=== PATIENT | male | born 1945 | race Caucasian/White ===

== ENCOUNTER → 2016-12-21 | Outpatient (CLI) | payer MEDICARE ==
[2016-12-21 09:14] LABS: CH 31.6; CHCM 33.5; HCT 39.1 % (39.0-53.0); HDW 2.39; HGB 13.2 gm/dL (13.0-17.5); MCH 31.8 pg (25.0-35.0); MCHC 33.6 g/dL (31.0-37.0); MCV 94.6 fL (80.0-100.0); Mean Platelet Volume 7.2; RBC 4.14 m/uL (4.30-5.90); RDW 13.6 % (11.5-15.5); WBC 6.6 k/uL (3.8-10.6)
[2016-12-21 11:37] LABS: ALT 32 U/L (21-72); AST 23 U/L (17-59); Alkaline Phosphatase 75 U/L (38-126); Anion Gap 8 mmol/L; Blood Urea Nitrogen 17 mg/dL (9-20); Calcium 9.6 mg/dL (8.4-10.2); Carbon Dioxide 30 mmol/L (22-30); Chloride 102 mmol/L (98-107); Cholesterol 109 mg/dL (<200); Glucose 113 mg/dL (74-99); HDL Cholesterol 45 mg/dL (40-60); Non-African American GFR(MDRD) >60 (>60 ml/min/1.73 sqM); Potassium 4.8 mmol/L (3.5-5.1); Sodium 140 mmol/L (137-145); Triglycerides 90 mg/dL (<150)
[2016-12-21 12:12] LABS: Prostate Specific Antigen 1.09 ng/mL (0.00-4.00)
[2016-12-21 13:54] LABS: Hemoglobin A1C 6.6 % (4.2-6.1)
[2016-12-21 16:39] LABS: Urine Creatinine 118.3 mg/dL
== END | disposition home or self-care (01) ==
LOC: LABWHC1 08:21
PROVIDERS: ATTEND Internal Medicine
DX: R35.0 Frequency of micturition (principal); I25.10 Atherosclerotic heart disease of native coronary artery without angina pectoris; E78.4 Other hyperlipidemia; E11.69 Type 2 diabetes mellitus with other specified complication; M19.90 Unspecified osteoarthritis, unspecified site
CPT/HCPCS: 36415; 80053; 80061; 82043; 82570; 83036; 84153; 85027

== ENCOUNTER → 2017-01-17 | Outpatient (CLI) | payer MEDICARE ==
--- NOTE | 2017-01-17 15:35 | XR ---
EXAMINATION TYPE: XR lumbosacral spine min 4V , 5 VIEWS DATE OF EXAM ORDERED: 01/17/2017 HISTORY: R52 pain. COMPARISON: None. FINDINGS: Height and alignment are maintained. There is no spondylolysis or spondylolisthesis. There is mild di sc space loss at L1-2. There is mild spondylosis deformans at L3-4 and L4-5. There is mild facet arth ropathy in the lower lumbar facets. There is calcification of the [place] aorta. IMPRESSION: 1. NO ACUTE OSSEOUS LESION. 2. MILD DEGENERATIVE CHANGE.
== END | disposition home or self-care (01) ==
LOC: RADXRMAIN 15:06
PROVIDERS: ATTEND Internal Medicine
DX: M47.817 Spondylosis without myelopathy or radiculopathy, lumbosacral region (principal)
CPT/HCPCS: 72110

== ENCOUNTER 2017-01-20 08:34 | Day surgery (SDC) | payer MEDICARE ==
[2017-01-18 13:06] VITALS: BMI 29.9
[~2017-01-20 08:34] MED LIST: LACTATED RINGERS 1,000 ML IV SCH
[2017-01-20 09:19] VITALS: RESP 16; TEMP 97.9
[2017-01-20] MEDS ORDERED: LIDOCAINE 1% 20 ML VIAL (10MG/ML) FOR IV START INTRADERMA ONE (09:27)
[2017-01-20] MEDS ORDERED: PROPOFOL 10 MG/ML 20 ML VIAL IV ONE (09:59)
--- NOTE | 2017-01-20 10:19 | P.PCN ---
Date of Procedure: 01/20/17 Preoperative Diagnosis: Postoperative Diagnosis: Procedure(s) Performed: BRIEF HISTORY: Patient is a 71-year-old pleasant male, scheduled for an elective colonoscopy as a part of evaluation of change in bowel habits for the last 6 months duration. PROCEDURE PERFORMED: Colonoscopy with biopsy and snare polypectomy. PREOPERATIVE DIAGNOSIS: Change in bowel habits. IV sedation per Anesthesia. PROCEDURE: After informed consent was obtained, the patient, was brought into the endoscopy unit. IV sedation was administered by Anesthesia under continuous monitoring. Digital rectal examination was normal. Initially the Olympus CF- 160 flexible video colonoscope was then inserted in the rectum, gradually advanced into the cecum without any difficulty. Careful examination was performed as the scope was gradually being withdrawn. Ileocecal valve and the appendiceal orifice were visualized and appeared normal. Prep was excellent. Mucosa of the cecum, ascending colon, appeared normal. In the transverse colon there was a 5 mm polyp that was removed by biopsy. The rest of the transverse colon, descending colon, sigmoid colon, and rectum appeared normal. In the proximal rectum there was a 1 cm polyp removed by snare polypectomy. Scattered sigmoid diverticula seen. Retroflexion was performed in the rectum and no lesions were seen. The patient tolerated the procedure well. IMPRESSION: 5 mm transverse colon polyp status post removal by biopsy and 1 cm proximal rectal polyp status post snare polypectomy Scattered sigmoid diverticulosis. RECOMMENDATIONS: Findings of this examination were discussed with the patient as well as his family. He was advised to follow with the biopsy results. If the biopsy shows a tubular adenoma he can have a repeat colonoscopy in 5 years Implants: Indications for Procedure: Operative Findings: Description of Procedure:
[2017-01-20 10:39] VITALS: BP 147/77; PULSE 61
== END 2017-01-20 11:09 | disposition home or self-care (01) ==
LOC: ORWHC2ENDO 08:34
PROVIDERS: ATTEND Internal Medicine Gastroenterology
DX: D12.8 Benign neoplasm of rectum (principal); K63.89 Other specified diseases of intestine; K57.30 Diverticulosis of large intestine without perforation or abscess without bleeding; I25.10 Atherosclerotic heart disease of native coronary artery without angina pectoris; I10 Essential (primary) hypertension; E78.5 Hyperlipidemia, unspecified; Z87.891 Personal history of nicotine dependence; Z95.1 Presence of aortocoronary bypass graft; Z79.2 Long term (current) use of antibiotics; Z79.52 Long term (current) use of systemic steroids; Z79.899 Other long term (current) drug therapy; Z88.8 Allergy status to other drugs, medicaments and biological substances
CPT/HCPCS: 88305; 45380; 45385; J2704

== ENCOUNTER → 2017-08-15 | Outpatient (CLI) | payer MEDICARE ==
[2017-08-15 08:48] LABS: Anion Gap 10 mmol/L; Blood Urea Nitrogen 20 mg/dL (9-20); Calcium 9.6 mg/dL (8.4-10.2); Carbon Dioxide 29 mmol/L (22-30); Chloride 102 mmol/L (98-107); Cholesterol 113 mg/dL (<200); Glucose 115 mg/dL (74-99); HDL Cholesterol 47 mg/dL (40-60); LDL Cholesterol,Calculated 46 mg/dL (0-99); Potassium 4.9 mmol/L (3.5-5.1); Sodium 141 mmol/L (137-145); Triglycerides 100 mg/dL (<150)
== END | disposition home or self-care (01) ==
LOC: LABWHC1 07:27
PROVIDERS: ATTEND Internal Medicine
DX: E11.69 Type 2 diabetes mellitus with other specified complication (principal); E87.8 Other disorders of electrolyte and fluid balance, not elsewhere classified; E78.4 Other hyperlipidemia
CPT/HCPCS: 36415; 80048; 80061

== ENCOUNTER → 2018-01-01 | Outpatient (CLI) | payer MEDICARE ==
[2018-01-01 09:43] LABS: HCT 38.4 % (39.0-53.0); HGB 12.6 gm/dL (13.0-17.5); MCHC 32.9 g/dL (31.0-37.0); MCV 91.1 fL (80.0-100.0); Mean Platelet Volume 7.7; Platelet Count 232 k/uL (150-450); RBC 4.22 m/uL (4.30-5.90); RDW 13.6 % (11.5-15.5); WBC 7.1 k/uL (3.8-10.6)
[2018-01-01 10:10] LABS: ALT 31 U/L (21-72); AST 24 U/L (17-59); Albumin 3.7 g/dL (3.5-5.0); Alkaline Phosphatase 58 U/L (38-126); Anion Gap 4 mmol/L; Blood Urea Nitrogen 15 mg/dL (9-20); Carbon Dioxide 31 mmol/L (22-30); Chloride 105 mmol/L (98-107); Cholesterol 105 mg/dL (<200); Glucose 103 mg/dL (74-99); HDL Cholesterol 47 mg/dL (40-60); LDL Cholesterol,Calculated 44 mg/dL (0-99); Potassium 4.7 mmol/L (3.5-5.1); Sodium 140 mmol/L (137-145); Total Bilirubin 0.8 mg/dL (0.2-1.3); Total Protein 6.8 g/dL (6.3-8.2); Triglycerides 71 mg/dL (<150)
[2018-01-01 20:23] LABS: Hemoglobin A1C 6.2 % (4.0-6.0)
== END | disposition home or self-care (01) ==
LOC: LABWHC1 08:55
PROVIDERS: ATTEND Internal Medicine
DX: E11.69 Type 2 diabetes mellitus with other specified complication (principal); E78.4 Other hyperlipidemia; I25.10 Atherosclerotic heart disease of native coronary artery without angina pectoris; Z12.5 Encounter for screening for malignant neoplasm of prostate
CPT/HCPCS: 36415; 80053; 80061; 82043; 82570; 83036; 85027

== ENCOUNTER → 2018-12-03 | Outpatient (CLI) | payer MEDICARE | END | disposition home or self-care (01) | LOC: LABWHC1 16:37 | PROVIDERS: ATTEND Internal Medicine Cardiovascular Disease | DX: G72.9 Myopathy, unspecified (principal) | CPT/HCPCS: 36415; 82550 ==

== ENCOUNTER → 2019-10-30 | Outpatient (CLI) | payer MEDICARE ==
--- NOTE | 2019-10-31 08:26 | XR ---
EXAMINATION TYPE: XR lumbosacral spine 5 views, XR Hip Complete 2 views RT DATE OF EXAM: 10/30/2019 COMPARISON: CT 11/19/2014. HISTORY: 74-year-old male low back pain and right hip pain FINDINGS: Lumbar spine: 5 lumbar type vertebral bodies. No pars interarticularis defect. Minimal anterior wedging T12 unchang ed back to 11/19/2014. Mild multilevel degenerative disc disease. Hypertrophic facet arthropathy especi ally in the lower lumbar spine. No new vertebral compression collapse. No malalignment. Right hip: Mild marginal spurring at the right hip. Vascular calcifications are present. No acute fracture, subl uxation, or dislocation seen. IMPRESSION: 1. Lumbar spine: Old minimal anterior wedging deformity of T12, stable back to 2014. Mild multilevel degenerative disc disease. Hypertrophic facet arthropathy lower lumbar spine. No new vertebral compre ssion collapse or malalignment. 2. Right hip: Very mild degenerative change. No acute osseous abnormality seen.
== END | disposition home or self-care (01) ==
LOC: RADXRMAIN 16:19
PROVIDERS: ATTEND Family Medicine
DX: M47.896 Other spondylosis, lumbar region (principal); M51.36 Other intervertebral disc degeneration, lumbar region; M43.8X6 Other specified deforming dorsopathies, lumbar region; M25.551 Pain in right hip
CPT/HCPCS: 72110; 73502

== ENCOUNTER → 2020-03-02 | Outpatient (CLI) | payer MEDICARE ==
[2020-03-02 15:19] LABS: African American GFR (CKD) >90 (>60 ml/min/1.73 sqM); Anion Gap 2 mmol/L; Blood Urea Nitrogen 18 mg/dL (9-20); Carbon Dioxide 36 mmol/L (22-30); Chloride 101 mmol/L (98-107); Non-African American GFR(CKD) >90 (>60 ml/min/1.73 sqM); Sodium 139 mmol/L (137-145)
[2020-03-02 15:21] LABS: HCT 37.7 % (39.0-53.0); HGB 12.3 gm/dL (13.0-17.5); MCH 31.9 pg (25.0-35.0); MCHC 32.8 g/dL (31.0-37.0); MCV 97.4 fL (80.0-100.0); Platelet Count 213 k/uL (150-450); RBC 3.87 m/uL (4.30-5.90); RDW 12.8 % (11.5-15.5); WBC 6.7 k/uL (3.8-10.6)
[2020-03-02 15:30] LABS: Potassium 5.1 mmol/L (3.5-5.1)
== END | disposition home or self-care (01) ==
LOC: LABPAT 14:06
PROVIDERS: ATTEND Internal Medicine
DX: Z01.818 Encounter for other preprocedural examination (principal); I25.118 Atherosclerotic heart disease of native coronary artery with other forms of angina pectoris
CPT/HCPCS: 36415; 80051; 82565; 84520; 85027

== ENCOUNTER 2020-03-11 06:27 | Day surgery (SDC) | payer MEDICARE ==
[2020-03-05 17:11] VITALS: BMI 30.7
[~2020-03-11 06:27] MED LIST changes: +ALPRAZolam 0.25 MG TAB PO PRN; +ALPRAZolam 0.5 MG TAB PO PRN; +ASPIRIN 325 MG TAB PO STA; -LACTATED RINGERS 1,000 ML IV SCH; +NITROGLYCERIN SL TABS 0.4 MG TAB SUBLINGUAL PRN; +SODIUM CHLORIDE 0.9% 1,000 ML in EMPTY BAG 1 BAG IV ONE
[2020-03-11] MEDS ORDERED: ALPRAZolam 0.5 MG TAB PO ONE (06:56)
[2020-03-11] MEDS ORDERED: SODIUM CHLORIDE 0.9% 1,000 ML IV ONE (07:00)
[2020-03-11 07:05] LABS: Glucose,Whole Blood 125 mg/dL (75-99)
[2020-03-11] MEDS ORDERED: LIDOCAINE 1% INJ 10MG/ML (20 ML MDV) ONE (07:17)
[2020-03-11] MEDS ORDERED: fentaNYL (PF) 50 MCG/ML 2 ML AMP ONE (07:27)
[2020-03-11] MEDS ORDERED: fentaNYL (PF) 50 MCG/ML 2 ML AMP IV ONE (07:37)
[2020-03-11] MEDS: MIDAZOLAM 2 MG/2 ML VIAL IV ONE ×2 (07:37→08:35)
[2020-03-11] MEDS ORDERED: LIDOCAINE 1% INJ 10MG/ML (20 ML MDV) IV ONE (07:38)
[2020-03-11] MEDS ORDERED: CLOPIDOGREL 75 MG TAB ONE (08:03)
[2020-03-11] MEDS ORDERED: IOPAMIDOL-370 125ML BTL INJ ONE (08:05)
[2020-03-11] MEDS ORDERED: CLOPIDOGREL 75 MG TAB PO ONE (08:08)
[2020-03-11] MEDS ORDERED: NITROGLYCERIN 1000MCG/10ML SYRINGE INTRACORON ONE (08:38)
[2020-03-11] MEDS ORDERED: IOPAMIDOL-370 100ML BTL INJ ONE ×2 (08:43→09:01)
[2020-03-11] MEDS ORDERED: ATROPINE SULFATE 0.1 MG/ML 10ML SYRINGE IV PRN (09:27)
[2020-03-11] MEDS ORDERED: RX INFO: IV CONTRAST WAS GIVEN 1 EACH MISC MISCELLANE PRN (09:27)
[2020-03-11] MEDS ORDERED: ZOLPIDEM 5 MG TAB PO PRN (09:27)
[2020-03-11] MEDS ORDERED: NITROGLYCERIN SL TABS 0.4 MG TAB SUBLINGUAL PRN (09:27)
[2020-03-11] MEDS ORDERED: MAG HYDROX/AL HYDROX/SIMETH 30 ML CUP PO PRN (09:27)
--- NOTE | 2020-03-11 09:47 | P.PRCINT ---
Percutaneous Coronary Int. - Percutaneous Coronary Intervention Percutaneous Coronary Intervention: PROCEDURES PERFORMED: Left heart catheterization, bilateral coronary angiography, SVG, radial artery graft and ZARATE to LAD angiography, PCI of proximal RCA with a 2.5 x 12 mm Xience PIOTR, postdilated with a 3.0 x 8 mm no ncompliant balloon, IVUS RCA, ultrasound-guided access. INDICATION: Class III angina, abnormal stress test showing large inferior perfusion defect HISTORY: Patient is a pleasant 74-year-old male with history of coronary artery disease status post SVG to OM1, left radial artery to diagonal 1, ZARATE to LAD, mild anemia, hypertension, hyperlipidemia who presents for elective left heart catheterization secondary to angina for approximately one year. Patient with the angina with mild to moderate activities which has been unimproved with antianginal regimen. He had a stress test performed which showed basilar mid anterior septal reversible perfusion defect and large size reversible inferior perfusion defect. Patient was therefore recommended for heart catheterization with possible PCI. CONSENT:I have discussed the risks, benefits and alternative therapies for the above-mentioned procedure and for both sedation/analgesia as well as necessary blood product administration, if indicated, as they pertain to this patient. The patient has indicated understanding and acceptance of the risks and procedures discussed. PROCEDURE: After the risks, benefits and alternatives of the above mentioned procedure explained in detail with the patient, informed consent was obtained. Patient was taken to the catheterization lab and prepped and draped in usual fashion. 1% lidocaine was used to anesthetize the right femoral area. A 6- [place]uran sheath was placed in the right radial artery using modified Seldinger technique and a micropuncture and ultrasound guidance. Left coronary angiography was performed with a 6-Honduran JL 3.5 catheter and right coronary angiography was performed with a 6-Honduran JR5 catheter in various views. SVG to OM1, left radial to diagonal 1 and ZARATE to LAD angiography was performed with the 6-Honduran JR5 catheter. The decision was made to perform PCI to the RCA. A 6-Honduran AL 0.75 guide was easily engage the RCA. The guide had dipped in the LV and pressure measurements were obtained. Heparin was given for an ACT over 250. There was some dampening noted with frequent repositioning of the guide. A 0.014 BMW wire was used to advance into the distal PDA. There was concern of the channel noted to the a bridging collateral and therefore no rotational atherectomy was performed. Serial dilations with a 1.5, 2.0, 2.5 and 2.75 noncompliant balloons were used. A 2.5 x 12 mm Xience drug-eluting stent was placed. The midportion of the stent was postdilated with a 3.0 x 8 mm noncompliant balloon. Preintervention there was 95% stenosis with CASSI 3 flow and postintervention there was 10% stenosis with diffuse pre-and postoperatively calcified mild luminal irregularities. IVUS was performed of the RCA which showed no dissection, good expansion of the stent with a reference vessel of approximately 2.25 mm and with stent expansion of 2.0-2.5 mm. Final angiograms were performed. The wire was pulled. A right femoral angiogram was performed which showed adequate anatomy for closure. An Angio-Seal was placed with hemostasis achieved. The patient tolerated the procedure well. Patient was transported back to the post catheterization holding area in stable condition. Conscious Sedation: Patient was monitored under the direct supervision of vision of myself for conscious sedation using Versed and fentanyl for a total duration of 83 minutes HEMODYNAMICS: Aorta: 152/78 LV: 148/4, LVEDP 13 mmHg SELECTIVE CORONARY ARTERIOGRAPHY: LEFT MAIN: The left main is a large caliber vessel which bifurcates into the LAD and circumflex. There is distal left main 80% stenosis at the bifurcation. LEFT ANTERIOR DESCENDING CORONARY ARTERY: LAD is a large caliber vessel which wraps around to the apex. There is diffuse heavily calcified 50% proximal stenosis. There is 100% stenosis of the mid LAD. LEFT CIRCUMFLEX CORONARY ARTERY: Left circumflex is a moderate caliber vessel. There is diffuse calcified artery 40% stenosis and a distal 50-60% stenosis which gives off 2 small caliber OM branches. OM1 is 100% occluded proximally. RIGHT CORONARY ARTERY: The right coronary artery is a small to moderate caliber vessel which gives off a PDA and PLV branch and is the dominant vessel. There is a 95% heavily calcified proximal RCA stenosis. The channel appears to be possibly a bridging collateral which may be subintimal. There is a proximal PDA 50% stenosis. The PLV has a distal 70-80% stenosis. The entire RCA is heavily calcified with 20 of 30% stenosis and mild luminal irregularities. ZARATE to LAD: Widely patent. The mid to distal LAD has mild luminal irregularities. SVG to OM1: SVG is widely patent without significant stenosis. Mild luminal irregularities of the OM1. Left radial to diagonal 1: Left radial branch is widely patent. Diagonal 1 has mild luminal irregularities and is a small caliber vessel. FINAL IMPRESSION: 1. Severe coronary artery disease as described above with patent grafts. 2. Progression of 95% RCA stenosis 3. Successful PCI of proximal RCA with a 2.5 x 12 mm Xience PIOTR, postdilated with a 3.0 x 8 mm noncompliant balloon PLAN: 1. Aggressive risk factor modification per most recent ACC/AHA guidelines. 2. Monitor patient overnight 3. Continue triple therapy with Pradaxa, aspirin and Plavix for one month and then discontinue aspirin after 1 month. 12 months of Plavix and Pradaxa.
[2020-03-11] MEDS ORDERED: SODIUM CHLORIDE 0.9% 1,000 ML IV SCH (10:00)
[2020-03-11] MEDS ORDERED: ACETAMINOPHEN TAB 325 MG TAB PO PRN (11:11)
[2020-03-11] MEDS ORDERED: ACETAMINOPHEN TAB 325 MG TAB PO ONE (11:11)
[2020-03-11] MEDS ORDERED: ACETAMINOPHEN TAB 325 MG TAB ONE (11:12)
[2020-03-11] MEDS: ATORVASTATIN 40 MG TAB PO SCH (16:49)
[2020-03-11] MEDS: carvediloL 12.5 MG TAB PO SCH (18:28)
[2020-03-11 20:36] LABS: Glucose,Whole Blood 125 mg/dL (75-99)
[2020-03-12] MEDS: carvediloL 12.5 MG TAB PO SCH (06:30)
[2020-03-12 07:16] LABS: African American GFR (CKD) >90 (>60 ml/min/1.73 sqM); Non-African American GFR(CKD) >90 (>60 ml/min/1.73 sqM)
[2020-03-12] MEDS ORDERED: ASPIRIN 81 MG PO SCH (09:00)
[2020-03-12] MEDS ORDERED: LOSARTAN 25 MG TAB PO SCH (09:00)
[2020-03-12] MEDS ORDERED: TAMSULOSIN 0.4 MG CAP.ER.24H PO SCH (09:00)
[2020-03-12] MEDS ORDERED: ISOSORBIDE MONONITRATE ER 30 MG TAB.ER.24H PO SCH (09:00)
[2020-03-12] MEDS ORDERED: CLOPIDOGREL 75 MG TAB PO SCH (09:00)
[2020-03-12] MEDS ORDERED: TROSPIUM CHLORIDE 20 MG TABLET PO SCH (09:00)
[2020-03-12] MEDS ORDERED: DABIGATRAN 150 MG CAP PO SCH (09:00)
[2020-03-12] MEDS: ATORVASTATIN 40 MG TAB PO SCH (09:08)
[2020-03-12 09:37] VITALS: BP 159/83; PULSE 64; RESP 16; TEMP 97.7
--- NOTE | 2020-03-12 11:26 | P.DS ---
Providers Expected date of discharge: 03/12/20 Attending physician: Migel Thomas DO Consults: 03/11/20 09:27 Consult Physician Routine Consulting Provider: [facility] Consult Reason/Comments: Post Interventional patient Do you want consulting provider notified?: Already Contacted Primary care physician: Belkys Tee Hospital Course: 74-year-old male with history of coronary artery disease status post SVG to OM1, left radial artery to diagonal 1, ZARATE to LAD, mild anemia, hypertension, hyperlipidemia who presented for elective left heart catheterization secondary to angina for approximately one year. Patient with the angina with mild to moderate activities which has been unimproved with antianginal regimen. He had a stress test performed which showed basilar mid anterior septal reversible perfusion defect and large size reversible inferior perfusion defect. Patient underwent cardiac cath with Dr. Thomas on 03/11/2020 revealing severe coronary artery disease with patent grafts, progression of 95% RCA stenosis, and PCI of the proximal RCA. Patient was admitted post cath for observation overnight. Patient is doing well this morning and was deemed stable for discharge home today per Dr. Thomas. Patient to continue triple therapy with Pradaxa, aspirin and Plavix for one month and then discontinue aspirin after 1 month. 12 months of Plavix and Pradaxa. Please see EMR for further hospital course details Discharge Diagnosis Angina x 1 year S/P cardiac cath with PCI to proximal RCA Coronary artery disease with previous CABG Hypertension Hyperlipidemia Nurse practitioner note has been reviewed by physician. Signing provider agrees with the documented findings, assessment, and plan of care. Plan - Discharge Summary Discharge Rx Participant: No New Discharge Prescriptions: New Clopidogrel [Plavix] 75 mg PO DAILY #90 tablet Omeprazole/Sodium Bicarbonate [Omeprazole-Bicarb 40-1,680 Pkt] 1 each PO AC- SUPPER #30 packet No Action Losartan [Cozaar] 25 mg PO DAILY Dabigatran [Pradaxa] 150 mg PO BID carvediloL [Coreg] 12.5 mg PO BID Isosorbide Mononitrate ER [Imdur] 30 mg PO DAILY Nitroglycerin Sl Tabs [Nitrostat] 0.4 mg SUBLINGUAL Q5M PRN PRN Reason: Chest Pain Multivitamins, Thera [Multivitamin (formulary)] 1 tab PO DAILY Aspirin 81 mg PO DAILY Trospium Chloride [Sanctura] 20 mg PO DAILY Rosuvastatin [Crestor] 20 mg PO DAILY Alfuzosin HCl [Uroxatral] 10 mg PO DAILY Fexofenadine HCl [Chelo Allergy] 60 mg PO DAILY Discharge Medication List Dabigatran [Pradaxa] 150 mg PO BID 11/19/14 [History] Losartan [Cozaar] 25 mg PO DAILY 11/19/14 [History] carvediloL [Coreg] 12.5 mg PO BID 11/19/14 [History] Alfuzosin HCl [Uroxatral] 10 mg PO DAILY 03/05/20 [History] Aspirin 81 mg PO DAILY 03/05/20 [History] Isosorbide Mononitrate ER [Imdur] 30 mg PO DAILY 03/05/20 [History] Multivitamins, Thera [Multivitamin (formulary)] 1 tab PO DAILY 03/05/20 [History] Nitroglycerin Sl Tabs [Nitrostat] 0.4 mg SUBLINGUAL Q5M PRN 03/05/20 [History] Rosuvastatin [Crestor] 20 mg PO DAILY 03/05/20 [History] Trospium Chloride [Sanctura] 20 mg PO DAILY 03/05/20 [History] Fexofenadine HCl [Chelo Allergy] 60 mg PO DAILY 03/11/20 [History] Clopidogrel [Plavix] 75 mg PO DAILY #90 tablet 03/12/20 [Rx] Omeprazole/Sodium Bicarbonate [Omeprazole-Bicarb 40-1,680 Pkt] 1 each PO AC- SUPPER #30 packet 03/12/20 [Rx] Follow up Appointment(s)/Referral(s): [facility],Cardiac [NON-STAFF] - (After discharge, you will follow-up with your senior accounts payable specialist. Once you have obtained a prescription for cardiac rehab, please call [phone] to set up an evaluation.) Migel Thomas DO [STAFF PHYSICIAN] - 03/17/20 1:30 pm Patient Instructions/Handouts: *Surgery [facility] - After Heart Catheterization - Building Estimator Instructions, Heart Healthy Diet (DC) Activity/Diet/Wound Care/Special Instructions: CARDIAC CATH 1. Support your puncture site by applying firm, steady pressure whenever you cough, laugh, sneeze or bear down to have a bowel movement (2-day restriction). 2. Watch for any excessive bruising, active bleeding, a firm knot forming under your skin, extreme tenderness and signs of infection (redness, swelling, fever). 3. Shower daily, do not soak puncture in a tub bath, jacuzzi, pool, mtz etc. for 1 week. This is to prevent risk of infection. 4. Drink plenty of fluids the day of and day after your procedure to flush contrast dye out of your kidneys. 5. Take all medications as directed. Never stop any new medication without your physicians OK. 6. No driving for 2 days after procedure. 7. 10- pound weight lifting restriction for 1 week. 8. Low sodium/low fat diet. 9. Activity limited until follow up appointment with your senior accounts payable specialist. In case of any problems, please call [facility] [place] @ [phone]. Discharge Disposition: HOME SELF-CARE
== END 2020-03-12 10:56 | disposition home or self-care (01) ==
LOC: CATHCVL 06:27 → 3NCARDOBS 09:00 → CATHCVL 03-12 10:56
PROVIDERS: ATTEND Internal Medicine
DX: I25.118 Atherosclerotic heart disease of native coronary artery with other forms of angina pectoris (principal); I25.84 Coronary atherosclerosis due to calcified coronary lesion; I25.82 Chronic total occlusion of coronary artery; I48.0 Paroxysmal atrial fibrillation; E78.2 Mixed hyperlipidemia; Z72.0 Tobacco use; Z95.1 Presence of aortocoronary bypass graft; N52.9 Male erectile dysfunction, unspecified; Z79.02 Long term (current) use of antithrombotics/antiplatelets; Z79.899 Other long term (current) drug therapy; Z88.8 Allergy status to other drugs, medicaments and biological substances
CPT/HCPCS: 92978; 93455; 76937; 82565; C9600; C1769 ×3; C1760; C1887; C1725 ×5; C1894; C1753; C1874; J2250; J2001; J3010; J1644; Q9967 ×2; 93459

== ENCOUNTER → 2020-05-08 | Outpatient (CLI) | payer MEDICARE ==
--- NOTE | 2020-05-08 10:16 | XR ---
EXAMINATION TYPE: XR chest 2V DATE OF EXAM: 05/08/2020 COMPARISON: 11/19/2014 HISTORY: Shortness of breath TECHNIQUE: Frontal and lateral views of the chest are obtained. FINDINGS: Scattered senescent parenchymal changes noted. Hyperinflation compatible with COPD. Patchy basilar infiltrates noted. Correlate for developing pneumonia. Heart size is stable. Mediastinal structures are stable and grossly unremarkable. No evidence for hilar prominence. Degenerative changes dorsal spine. IMPRESSION: 1. Patchy basilar infiltrates noted. Correlate for developing pneumonia.
== END | disposition home or self-care (01) ==
LOC: RADXRMAIN 09:38
PROVIDERS: ATTEND Family Medicine
DX: R91.8 Other nonspecific abnormal finding of lung field (principal)
CPT/HCPCS: 71046

== ENCOUNTER → 2020-08-31 | Outpatient (CLI) | payer MEDICARE ==
--- NOTE | 2020-08-31 21:04 | XR ---
EXAMINATION TYPE: XR lumbosacral spine 5 views, XR pelvis AP view, XR Hip Complete LT 2 views DATE OF EXAM: 08/31/2020 Comparison: 10/30/2019 Clinical History: 75-year-old male Fall, Hip pain, LBP Findings: Lumbar spine: 5 lumbar type vertebral bodies. Dense atherosclerotic calcifications within the abdominal aorta. Ther e may be mild aneurysm at 3.1 cm. Facet arthropathy mid to lower lumbar spine. Mild degenerative disc disease and endplate spondylosis throughout. Vertebral body heights are preserved and alignment is m aintained. Pelvis an left hip: The some degenerative subarticular sclerosis at the SI joints. Pubic symphysis is intact. The hips ar e intact with very mild joint space narrowing. Pelvic lymph nodes. Vascular calcifications also noted . No acute fracture, subluxation, dislocation. Surgical clips along the medial upper left thigh. Impression: 1. Lumbar spine: Mild multilevel degenerative disc disease. Hypertrophic facet arthropathy mid to low er lumbar spine. No vertebral compression collapse or malalignment. Possible 3.1 cm AAA. Consider scr eening ultrasound of the abdominal aorta. 2. Pelvis and left hip: Mild degenerative change at both hips. No acute osseous abnormality seen.
== END | disposition home or self-care (01) ==
LOC: RADXRMAIN 11:23
PROVIDERS: ATTEND Family Medicine
DX: M51.36 Other intervertebral disc degeneration, lumbar region (principal); M47.816 Spondylosis without myelopathy or radiculopathy, lumbar region; M16.0 Bilateral primary osteoarthritis of hip
CPT/HCPCS: 72110; 72170; 73502

== ENCOUNTER → 2020-09-11 | Outpatient (CLI) | payer MEDICARE ==
[2020-09-11 12:29] LABS: African American GFR (CKD) >90 (>60 ml/min/1.73 sqM); Blood Urea Nitrogen 18 mg/dL (9-20); Non-African American GFR(CKD) 89 (>60 ml/min/1.73 sqM)
--- NOTE | 2020-09-11 14:12 | CT ---
EXAMINATION TYPE: CT abdomen pelvis w con DATE OF EXAM: 09/11/2020 COMPARISON: 11/19/2014 HISTORY: AAA, enlarged lymphnodes CT DLP: 1797.6 mGycm CONTRAST: CT scan of the abdomen and pelvis is performed with Oral Contrast and with IV Contrast, patient injec samuel with 100 mL of Isovue 300. FINDINGS: LUNG BASES-: No visible nodule. No infiltrate. Basilar subpleural fibrosis. LIVER/GB: No calcified gallstones. No space occupying hepatic lesion. Biliary tree is of normal ca liber. PANCREAS: No inflammation. No distinct mass. SPLEEN: No splenic enlargement. No lesion seen. ADRENALS: No nodule. No thickening. KIDNEYS/BLADDER: No hydronephrosis. No nephrolithiasis. No distinct renal mass. Urinary bladder g rossly unremarkable. BOWEL: Normal appendix. Normal bowel caliber. No inflammation. GENITAL ORGANS: No gross abnormality. LYMPH NODES: No greater than 1cm abdominal or pelvic lymph nodes are appreciated. AORTA: No significant abnormality. OSSEOUS STRUCTURES: No significant abnormality is seen. OTHER: No significant additional abnormality is seen. IMPRESSION: 1. No evidence for adenopathy. 2 atheromatous and nonaneurysmal change of the abdominal aorta.
== END | disposition home or self-care (01) ==
LOC: RADCTMAIN 11:33
PROVIDERS: ATTEND Family Medicine
DX: I71.4 Abdominal aortic aneurysm, without rupture (principal)
CPT/HCPCS: 82565; 84520; 74177; 36415; Q9967 ×2

== ENCOUNTER → 2020-12-09 | Outpatient (CLI) | payer MEDICARE ==
--- NOTE | 2020-12-10 04:11 | MR ---
EXAMINATION TYPE: MR brain and iac wo/w con DATE OF EXAM: 12/09/2020 COMPARISON: None HISTORY: Decreased balance, bilateral weakness, bilateral hearing loss, memory loss. CONTRAST: Standard multiplanar, multisequence MRI departmental protocol utilizing 10 mL intravenous Gadavist ga dolinium contrast. There is diffuse cerebral atrophy. There is no mass effect nor midline shift. Diffusion images show n o evidence of an acute infarct. There is no evidence of intracranial hemorrhage. On the T2 and FLAIR images there are numerous foci o f abnormal increased signal in the white matter both cerebral hemispheres. Total number is approximat valeriy 30 and these measure up to 1 cm. These appear more concentrated in the parietal lobes. There is t hinning of the corpus callosum. The brainstem is intact. There is mucosal thickening in the sphenoid sinus. There is normal enhancement of the venous sinuses. There is no pathologic intracranial enhancement. IMPRESSION: Cerebral atrophy. Extensive white matter changes that could relate to demyelinating disease or chroni c small vessel ischemia. No evidence of an acute infarct. Sphenoid sinusitis.
== END | disposition home or self-care (01) ==
LOC: RADMRIMAIN 19:53
PROVIDERS: ATTEND Family Medicine
DX: G31.9 Degenerative disease of nervous system, unspecified (principal); J32.3 Chronic sphenoidal sinusitis
CPT/HCPCS: 70553; A9585

== ENCOUNTER → 2021-01-13 | Outpatient (CLI) | payer MEDICARE ==
[2021-01-13 07:08] LABS: African American GFR (CKD) >90 (>60 ml/min/1.73 sqM); Blood Urea Nitrogen 21 mg/dL (9-20); Non-African American GFR(CKD) >90 (>60 ml/min/1.73 sqM)
--- NOTE | 2021-01-13 09:15 | CT ---
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 Coronal/sagittal reconstructions performed. CT DLP: 412.7mGycm. Automatic exposure control utilized for a dose reduction. FINDINGS: Median sternotomy wires are present with post CABG tubes in the mediastinum. Heart upper limits of normal in size without pericardial effusion. Aorta normal caliber with conventional branching anatomy. Bilateral scattered microcalcifications. Borderline sized lower paratracheal lymph nodes measuring up to 9 mm on the left. Otherwise, no thora cic lymphadenopathy by CT size criteria. Minimal paraseptal emphysema in the upper lungs. There are findings to medium subpleural reticulation s and ground glass bilaterally from the upper lungs to the lung bases. Lung bases have greater degree of septal thickening, reticulations, and traction bronchiolectasis. Associated mild groundglass dens ities. Changes had progressed from the 11/19/[address] No pleural effusion. No domina nt nodules/cavitary nodules are seen. No honeycombing. Tiny hiatal hernia. Retained epicardial pacer leads. Visualized upper abdomen shows mild to moderate stool burden. Bones: Gentle reverse S-shaped curvature of the thoracic spine. Minimal anterior wedging/superior end plate deformity of T12 appears chronic given the lack of any surrounding soft tissue swelling. Mild b ridging anterior endplate spondylosis lower thoracic spine. IMPRESSION: 1. Interstitial lung disease with subpleural reticulations throughout. More coarse reticulations and ground glass with associated traction bronchiectasis in the lower lungs. Changes have progressed from the 2015 abdomen/pelvis CT. There is no jaydon honeycombing. Correlate for rheumatoid associated inte rstitial lung disease/NSIP. 2. Post-CABG changes. Tiny hiatal hernia.
== END | disposition home or self-care (01) ==
LOC: RADCTMAIN 06:30
PROVIDERS: ATTEND Internal Medicine Rheumatology
DX: M05.10 Rheumatoid lung disease with rheumatoid arthritis of unspecified site (principal); J64 Unspecified pneumoconiosis; J99 Respiratory disorders in diseases classified elsewhere; J47.9 Bronchiectasis, uncomplicated; Z95.1 Presence of aortocoronary bypass graft
CPT/HCPCS: 82565; 84520; 71260; 36415; Q9967

== ENCOUNTER 2021-05-21 16:20 | Inpatient (IN) | payer MEDICARE ==
[2021-05-21 16:35] LABS: Basophils % (A) 1 %; Eosinophils # (A) 0.2 k/uL (0-0.7); Eosinophils % (A) 3 %; HCT 39.7 % (39.0-53.0); Lymphocytes # (A) 1.3 k/uL (1.0-4.8); Lymphocytes % (A) 19 %; MCH 31.6 pg (25.0-35.0); MCHC 32.8 g/dL (31.0-37.0); MCV 96.4 fL (80.0-100.0); Mean Platelet Volume 7.4; Monocytes # (A) 0.5 k/uL (0-1.0); Monocytes % (A) 7 %; Neutrophils # (A) 4.7 k/uL (1.3-7.7); Neutrophils % (A) 69 %; Platelet Count 183 k/uL (150-450); RBC 4.11 m/uL (4.30-5.90); RDW 12.5 % (11.5-15.5); WBC 6.8 k/uL (3.8-10.6)
[2021-05-21 16:44] LABS: ALT 15 U/L (4-49); AST 24 U/L (17-59); African American GFR (CKD) >90 (>60 ml/min/1.73 sqM); Albumin 3.4 g/dL (3.5-5.0); Alkaline Phosphatase 69 U/L (38-126); Anion Gap 4 mmol/L; Blood Urea Nitrogen 22 mg/dL (9-20); Calcium 9.1 mg/dL (8.4-10.2); Carbon Dioxide 30 mmol/L (22-30); Chloride 104 mmol/L (98-107); Glucose 103 mg/dL (74-99); INR 1.3 (<1.2); Non-African American GFR(CKD) 85 (>60 ml/min/1.73 sqM); Partial Thromboplastin Time 40.8 sec (22.0-30.0); Potassium 4.2 mmol/L (3.5-5.1); Prothrombin Time 13.4 sec (9.0-12.0); Sodium 138 mmol/L (137-145); Total Bilirubin 0.7 mg/dL (0.2-1.3); Total Protein 6.9 g/dL (6.3-8.2)
--- NOTE | 2021-05-21 16:47 | CT ---
EXAMINATION TYPE: CT brain wo con for TPA DATE OF EXAM: 05/21/2021 COMPARISON: None HISTORY: Left sided weakness. CT DLP: 1102.8 mGycm Automated exposure control for dose reduction was used. There is cerebral cortical atrophy. There is no mass effect or midline shift. There is no sign of int racranial hemorrhage. Calvarium is intact. There is normal aeration of the mastoid sinuses. There is extensive opacification of the sphenoid sinus. There is mild wall thickening. IMPRESSION: Cerebral atrophy. No acute intracranial abnormality. Chronic sphenoid sinusitis without change compar ed to the old CT scan of 05/13/2013.
--- NOTE | 2021-05-21 17:11 | CT ---
EXAMINATION TYPE: CT angio head neck DATE OF EXAM: 05/21/2021 COMPARISON: None HISTORY: Left sided weakness. CT DLP: 707.6 mGycm Automated exposure control for dose reduction was used. CONTRAST: Performed with IV Contrast, patient injected with 65ml mL of Isovue 370. Images obtained from the aortic arch to the vertex of the brain without IV contrast. There are Three- D postprocessed images. There is normal branching pattern of the great vessels on the aortic arch. Thoracic aorta is atheroma tous. There is arterial flow in both subclavian arteries. There is arterial flow in the common senior internet sales consultant al and external carotid arteries bilaterally. There is arterial flow in both vertebral arteries. Ther e is no evidence of carotid or vertebral artery aneurysm or dissection. There is some plaque formatio n at the carotid bifurcations and estimated 30% stenosis at the origin of the right internal carotid artery. There is estimated 25% stenosis origin of the left internal carotid artery. There is arterial flow in the vertebrobasilar artery system. There is arterial flow in the anterior m iddle and posterior cerebral arteries bilaterally. There is normal contrast opacification of the veno us sinuses. There is no mass effect. There is no evidence of intracranial aneurysm or neovascularity. There is no evidence of intracranial hemodynamic stenosis. IMPRESSION: Plaque formation at the carotid artery bifurcations and mild stenosis as above. No evidence of hemody namic stenosis. No evidence of any significant intracranial angiographic abnormality.
--- NOTE | 2021-05-21 17:44 | XR ---
EXAMINATION TYPE: XR chest 2V DATE OF EXAM: 05/21/2021 COMPARISON: 03/03/2021 HISTORY: Altered mental status TECHNIQUE: 2 views FINDINGS: Heart is normal. There is coarse interstitial density throughout the lungs. There are murcia al wires. There are chest leads. There is no pleural effusion. There are no hilar masses. IMPRESSION: Interstitial pulmonary density probably related to pulmonary fibrosis and not significant ly different than last exam. There is mild progression compared to chest x-ray of 05/08/2020.
[2021-05-21] MEDS ORDERED: ASPIRIN 325 MG TAB PO STA (17:51)
--- NOTE | 2021-05-21 17:56 | ED ---
General Adult HPI - General Chief complaint: Neuro Symptoms/Deficit Stated complaint: possible stroke Source: patient, EMS, RN notes reviewed, old records reviewed Mode of arrival: EMS Limitations: no limitations - History of Present Illness Initial comments: 75-year-old male brought in for evaluation by paramedics sob left-sided weakness,. Patient was at his home. In his usual state of health. Around 1600 he had a minor fall. Uncertain exactly if this patient had fallen secondary to weakness but he did develop a left-sided weakness and left-sided facial droop this was appreciated by EMS. He was brought in as a code stroke activation. He has a history of atrial fibrillation and is on Pradaxa. There was no injury from the fall. No head trauma. Patient denies any complaints time my evaluation. No chest pain or abdominal pain. No palpitations. No focal numbne ss or weakness. - Related Data Home Medications Medication Instructions Recorded Confirmed Dabigatran [Pradaxa] 150 mg PO BID 11/19/14 03/11/20 Losartan [Cozaar] 25 mg PO DAILY 11/19/14 03/11/20 carvediloL [Coreg] 12.5 mg PO BID 11/19/14 03/11/20 Alfuzosin HCl [Uroxatral] 10 mg PO DAILY 03/05/20 03/11/20 Aspirin 81 mg PO DAILY 03/05/20 03/11/20 Isosorbide Mononitrate ER [Imdur] 30 mg PO DAILY 03/05/20 03/11/20 Multivitamins, Thera [Multivitamin 1 tab PO DAILY 03/05/20 03/11/20 (formulary)] Nitroglycerin Sl Tabs [Nitrostat] 0.4 mg SUBLINGUAL Q5M PRN 03/05/20 03/05/20 Rosuvastatin [Crestor] 20 mg PO DAILY 03/05/20 03/11/20 Trospium Chloride [Sanctura] 20 mg PO DAILY 03/05/20 03/11/20 Fexofenadine HCl [Chelo Allergy] 60 mg PO DAILY 03/11/20 03/11/20 Previous Rx's Medication Instructions Recorded Clopidogrel [Plavix] 75 mg PO DAILY #90 tablet 03/12/20 Omeprazole/Sodium Bicarbonate 1 each PO AC-SUPPER #30 packet 03/12/20 [Omeprazole-Bicarb 40-1,680 Pkt] Allergies Allergy/AdvReac Type Severity Reaction Status Date / Time diphenhydramine HCl Allergy Swelling Verified 03/05/20 16:46 [From Benadryl] Review of Systems ROS Statement: Those systems with pertinent positive or pertinent negative responses have been documented in the HPI. ROS Other: All systems not noted in ROS Statement are negative. Past Medical History Past Medical History: Coronary Artery Disease (CAD), Hyperlipidemia, Hypertension, Myocardial Infarction ([place]) Additional Past Medical History / Comment(s): recent stress test, recent SOB w/exertion, diet controlled diabetic, hx. skin cancer Last Myocardial Infarction Date:: 2003 History of Any Multi-Drug Resistant Organisms: None Reported Past Surgical History: Coronary Bypass/CABG Additional Past Surgical History / Comment(s): rhinoplasty Past Anesthesia/Blood Transfusion Reactions: Previous Problems w/ Anesthesia Additional Past Anesthesia/Blood Transfusion Reaction / Comment(s): difficult intubation-needs fiberoptic per pt. Past Psychological History: No Psychological Hx Reported Smoking Status: Former smoker Past Alcohol Use History: Rare Past Drug Use History: None Reported General Exam Limitations: no limitations General appearance: alert, in no apparent distress Head exam: Present: atraumatic, normocephalic Eye exam: Present: normal appearance, PERRL ENT exam: Present: normal exam Neck exam: Present: normal inspection. Absent: tenderness, meningismus Respiratory exam: Present: normal lung sounds bilaterally. Absent: respiratory distress, wheezes Cardiovascular Exam: Present: regular rate, normal rhythm GI/Abdominal exam: Present: soft. Absent: distended, tenderness, guarding Extremities exam: Present: normal inspection, normal capillary refill. Absent: pedal edema Neurological exam: Present: alert, oriented X3, CN II-XII intact, other (NIH of 0). Absent: motor sensory deficit Psychiatric exam: Present: normal affect, normal mood Skin exam: Present: warm, dry, intact. Absent: cyanosis, diaphoretic Course Vital Signs 05/21/21 16:22 Temperature 98.2 F Pulse Rate 76 Respiratory 18 Rate Blood Pressure 162/77 O2 Sat by Pulse 100 Oximetry - Reevaluation(s) Reevaluation #1: 05/21/21 [address] Love. Patient not a TPA candidate given his anticoagulation status and resolved symptoms. EKG Findings - EKG Comments: EKG Findings:: EKG: Normal sinus rhythm, rate 76, [place] interval 186, QRS duration 86, QTC 438, no ST segment elevation. Medical Decision Making - Medical Decision Making 75-year-old male with symptoms suggestive of TIA. His symptoms are resolved upon arrival and remained resolved while in the emergency department. CT is negative for intracranial hemorrhage or mass effect. CT angiography is negative for intracranial occlusion he does have some bilateral carotid disease. He has normal laboratory testing. Chest x-ray showed pulmonary fibrosis which is stable for this patient. He will be admitted for further evaluation of TIA. Case discussed with the admitting physician. Neurology placed on consult. - Lab Data Result diagrams: 05/21/21 16:25 05/21/21 16:25 Lab Results 05/21/21 05/21/21 05/21/21 Range/Units 16:25 16:25 16:25 WBC 6.8 (3.8-10.6) k/uL RBC 4.11 L (4.30-5.90) m/uL Hgb 13.0 (13.0-17.5) gm/dL Hct 39.7 (39.0-53.0) % MCV 96.4 (80.0-100.0) fL MCH 31.6 (25.0-35.0) pg MCHC 32.8 (31.0-37.0) g/dL RDW 12.5 (11.5-15.5) % Plt Count 183 (150-450) k/uL MPV 7.4 Neutrophils % 69 % Lymphocytes % 19 % Monocytes % 7 % Eosinophils % 3 % Basophils % 1 % Neutrophils # 4.7 (1.3-7.7) k/uL Lymphocytes # 1.3 (1.0-4.8) k/uL Monocytes # 0.5 (0-1.0) k/uL Eosinophils # 0.2 (0-0.7) k/uL Basophils # 0.0 (0-0.2) k/uL PT 13.4 H (9.0-12.0) sec INR 1.3 H (<1.2) APTT 40.8 H (22.0-30.0) sec Sodium 138 (137-145) mmol/L Potassium 4.2 (3.5-5.1) mmol/L Chloride 104 (98-107) mmol/L Carbon Dioxide 30 (22-30) mmol/L Anion Gap 4 mmol/L BUN 22 H (9-20) mg/dL Creatinine 0.89 (0.66-1.25) mg/dL Est GFR (CKD-EPI)AfAm >90 (>60 ml/min/1.73 sqM) Est GFR (CKD-EPI)NonAf 85 (>60 ml/min/1.73 sqM) Glucose 103 H (74-99) mg/dL Calcium 9.1 (8.4-10.2) mg/dL Total Bilirubin 0.7 (0.2-1.3) mg/dL AST 24 (17-59) U/L ALT 15 (4-49) U/L Alkaline Phosphatase 69 (38-126) U/L Troponin I (0.000-0.034) ng/mL Total Protein 6.9 (6.3-8.2) g/dL Albumin 3.4 L (3.5-5.0) g/dL 05/21/21 Range/Units 16:25 WBC (3.8-10.6) k/uL RBC (4.30-5.90) m/uL Hgb (13.0-17.5) gm/dL Hct (39.0-53.0) % MCV (80.0-100.0) fL MCH (25.0-35.0) pg MCHC (31.0-37.0) g/dL RDW (11.5-15.5) % Plt Count (150-450) k/uL MPV Neutrophils % % Lymphocytes % % Monocytes % % Eosinophils % % Basophils % % Neutrophils # (1.3-7.7) k/uL Lymphocytes # (1.0-4.8) k/uL Monocytes # (0-1.0) k/uL Eosinophils # (0-0.7) k/uL Basophils # (0-0.2) k/uL PT (9.0-12.0) sec INR (<1.2) APTT (22.0-30.0) sec Sodium (137-145) mmol/L Potassium (3.5-5.1) mmol/L Chloride (98-107) mmol/L Carbon Dioxide (22-30) mmol/L Anion Gap mmol/L BUN (9-20) mg/dL Creatinine (0.66-1.25) mg/dL Est GFR (CKD-EPI)AfAm (>60 ml/min/1.73 sqM) Est GFR (CKD-EPI)NonAf (>60 ml/min/1.73 sqM) Glucose (74-99) mg/dL Calcium (8.4-10.2) mg/dL Total Bilirubin (0.2-1.3) mg/dL AST (17-59) U/L ALT (4-49) U/L Alkaline Phosphatase (38-126) U/L Troponin I <0.012 (0.000-0.034) ng/mL Total Protein (6.3-8.2) g/dL Albumin (3.5-5.0) g/dL Disposition Clinical Impression: Transient cerebral ischemia Disposition: ADMITTED IP TO THIS HOSP Condition: Stable Is patient prescribed a controlled substance at d/c from ED?: No Referrals: None,Stated [Primary Care Provider] - 1-2 days Decision to Admit Reason: Admit from EC Decision Date: 05/21/21 Decision Time: 17:56
[2021-05-21] MEDS: SODIUM CHLORIDE 0.9% 1,000 ML IV SCH (18:58)
--- NOTE | 2021-05-21 19:39 | HP ---
HISTORY AND PHYSICAL DATE OF SERVICE: 05/21/2021 CHIEF COMPLAINTS: Weakness of the left side of the body. HISTORY OF PRESENT ILLNESS: This 75-year-old gentleman with a past medical history of multiple medical illnesses including history of CAD, hypertension, hyperlipidemia, history of myocardial infarction and recent stress test and recent shortness of breath, not being followed by any primary physician in the outpatient was noted to have left-sided weakness. Patient was at home and at 4 o'clock, the patient had minimal fall and subsequently patient noted some weakness. The flaccidity was reported by EMS as well but asked the patient went to the emergency room and was evaluated. The weakness improved and the patient being closely monitored at this time. There is no history of fever, rigors or chills. No history of headache, loss of consciousness or seizures at this time. The patient also had a CT angiography and stroke code was also called and neurology evaluation underway. A CT angio showed plaque formation in the carotid artery bifurcation with mild stenosis. Otherwise, no significant hemodynamic stenosis noted. The CT of the brain showed cerebral atrophy. There is no history of fever, rigors or chills. No history of headache, loss of consciousness, seizures at this time. PAST MEDICAL HISTORY: History of CAD, hypertension, hyperlipidemia, myocardial infarction, history of CAD/CABG. MEDICATIONS: Prior to admission include home medications are: Coreg, Spiriva, Crestor, omeprazole, Nitrostat, multivitamin, Cozaar, Imdur, Chelo, Pradaxa, Plavix, aspirin, Uroxatral. Doses reviewed. ALLERGIES: BENADRYL. FAMILY HISTORY: No history of heart disease or strokes in the family. SOCIAL HISTORY: Previous history of smoking. No history of alcohol intake. REVIEW OF SYSTEMS: ENT: No diminished vision. No diminished hearing. CARDIOVASCULAR: No angina or palpitations. RESPIRATIONS: No cough or hemoptysis. GI: No nausea or vomiting. : No dysuria. NERVOUS SYSTEM: As mentioned earlier. ALLERGY/IMMUNOLOGY: No asthma or hayfever. MUSCULOSKELETAL: As mentioned earlier. HEMATOLOGY/ONCOLOGY: No history of anemia. ENDOCRINE: No history of diabetes or hypothyroidism. CONSTITUTIONAL: As mentioned earlier. DERMATOLOGY: Negative. RHEUMATOLOGY: Negative. PSYCHIATRIC: As mentioned earlier. PHYSICAL EXAMINATION: Alert and oriented times three. Pulse 76, blood pressure 162/70, respirations 18, temperature 98.2. Pulse ox 100 percent on room air. HEENT: Conjunctivae normal NECK: No JVD. CARDIOVASCULAR: S1, S2 muffled. RESPIRATION: Breath sounds diminished in the bases. No rhonchi. No crackles. ABDOMEN: Soft, nontender. LEGS: No edema. NERVOUS SYSTEM: Higher functions as mentioned earlier. Moves all four limbs. no focal deficits. LYMPHATICS: No lymph nodes palpable in the neck, axillae or groin. SKIN: No ulcer, no rashes and no bleeding. JOINTS: No active deforming arthropathy. LABS: WBC 6.8, hemoglobin is 13, INR is 1.3, glucose 103. ASSESSMENT: 1. Weakness of the left side of the body, possible acute transient ischemic attack, improved. 2. History of coronary artery disease. 3. Hypertension. 4. Hyperlipidemia. 5. History of myocardial infarction. 6. History of diet-controlled diabetes. 7. History of coronary artery disease, coronary artery bypass grafting. RECOMMENDATIONS AND DISCUSSION: In this 75-year-old gentleman who presented with multiple complex medical issues, we will monitor the patient closely, continue the current medications, management and symptomatic treatment. Neurology evaluation. Full neurovascular workup and I would also recommend antiplatelet agents. The home medication will be resumed once they are confirmed. Otherwise, prognosis guarded. Further recommendations to follow. Also recommend the patient follow up with primary physician closely after discharge. NIXON / STEPHEN: [id number] /
[2021-05-22 09:08] LABS: Chol/HDL Ratio 3.05 Ratio; LDL Cholesterol,Calculated 84.9 mg/dL (0.0-131.0)
[2021-05-22] MEDS ORDERED: carvediloL 12.5 MG TAB PO SCH (09:30)
[2021-05-22] MEDS ORDERED: LOSARTAN 25 MG TAB PO SCH (09:30)
--- NOTE | 2021-05-22 10:31 | P.CNNES ---
History of Present Illness Consult date: 05/22/21 Requesting physician: Patel Garcia Reason for Consult: TIA History of Present Illness: Patient is a 75-year-old right-handed male came to the hospital by ambulance yesterday at 4:20 PM. 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 Patient noticed that shortly after that around 30 minutes later, while he was helping fix dinner with his , walked over to the trash can, trying to open it when he noticed his left arm became limp. he noticed his left hand would not work, and his notices left side of the face was droopy. He could not remember if he had any slurred speech or difficulty speaking, but he does not believe he had any speech problem. He also noticed some numbness involving left side of the face and left arm. Denies any visual problems. His left side was not working and per family, patient had left-sided facial droop and his speaking was off. Patient denied any head or neck or back pain. 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 Continue to have some difficulty with speaking, slow to get words out. Patient's blood pressure at the scene was 176/86, pulse rate 77, respiration 20, saturating 95%. Blood glucose 123. Patient states that his symptoms slowly resolved in about 3 hours. Computed tomography scan of the head showed cerebral atrophy. No acute intracranial abnormality. 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 I personally reviewed computed tomography scan of the head, and agree with the findings. CTA of head and neck showed plaque formation at the carotid artery bifurcation and mild stenosis. No evidence of hemodynamic stenosis. No evidence of any significant intracranial angiographic abnormality. Chest x-ray showed interstitial pulmonary density probably related to pulmonary fibrosis and not significantly different than last exam. There is mild progression compared to chest x-ray of 05/08/2020. EKG shows normal sinus rhythm. Patient has history of atrial fibrillation for which he is taking Pradaxa. Patient used to be on Plavix along with Pradaxa for a year after he had a cardiac stent placed. The Plavix was discontinued on 03/22/2021. He is not taking antiplatelet medication at home. His home medications does list about aspirin although he is not. Patient's home medications include Pradaxa, Cozaar, Coreg, isosorbide, Wellbutrin, Arava, multivitamins, Crestor. patient states he used to take Crestor, but stopped taking it 6 months ago after he noticed some weakness in the legs. He has previously been on Lipitor as well. Patient follows up with Leandra Schultz at [facility] for chronic dizziness. Also follows up with health sciences program coordinator. patient states that about 1-2 months ago he had a spell while he was in the shower and everything was feeling normal. All of a sudden he got confused, brain felt like muddled and he felt he has to hold onto the handrail to prevent a fall. This feeling lasted for 15 minutes. He does not recall having any focal weakness or other stroke symptoms. Review of Systems as mentioned above in detail. Patient has chronic dizziness. Denies any problem with the vision. No chest pain, shortness of breath. He has chronic weakness in the legs. Denies any fever or chills. No other history of strokes or TIA besides mentioned above. Denies any double vision or loss of vision. All other 14 point of previous systems reviewed and unremarkable. Past Medical History Past Medical History: Coronary Artery Disease (CAD), Hyperlipidemia, Hypertension, Myocardial Infarction ([place]) Additional Past Medical History / Comment(s): recent stress test, recent SOB w/exertion, diet controlled diabetic, hx. skin cancer Last Myocardial Infarction Date:: 2003 History of Any Multi-Drug Resistant Organisms: None Reported Past Surgical History: Coronary Bypass/CABG Additional Past Surgical History / Comment(s): rhinoplasty Past Anesthesia/Blood Transfusion Reactions: Previous Problems w/ Anesthesia Additional Past Anesthesia/Blood Transfusion Reaction / Comment(s): difficult intubation-needs fiberoptic per pt. Past Psychological History: No Psychological Hx Reported Smoking Status: Former smoker Past Alcohol Use History: Rare Past Drug Use History: None Reported Medications and Allergies Home Medications Medication Instructions Recorded Confirmed Type Dabigatran [Pradaxa] 150 mg PO BID 11/19/14 05/22/21 History Losartan [Cozaar] 25 mg PO DAILY 11/19/14 05/22/21 History Alfuzosin HCl [Uroxatral] 10 mg PO DAILY 10/15/20 01/01/22 History Multivitamins, Thera [Multivitamin 1 tab PO DAILY 03/05/20 05/22/21 History (formulary)] Nitroglycerin Sl Tabs [Nitrostat] 0.4 mg SUBLINGUAL Q5M PRN 03/05/20 05/22/21 History Trospium Chloride [Sanctura] 20 mg PO BID 03/05/20 05/22/21 History Aspirin 81 mg PO DAILY #30 tab 05/22/21 Rx Leflunomide [Arava] 20 mg PO DAILY 05/22/21 05/22/21 History Meclizine [Antivert] 25 mg PO TID PRN 05/22/21 05/22/21 History buPROPion [Wellbutrin] 75 mg PO DAILY 05/22/21 05/22/21 History carvediloL [Coreg*] 25 mg PO BID #60 05/22/21 05/22/21 Rx Allergies Allergy/AdvReac Type Severity Reaction Status Date / Time diphenhydramine HCl Allergy Swelling Verified 05/22/21 08:52 [From Benadryl] Physical Examination - Vital Signs Vital Signs: Vital Signs Temp Pulse Resp BP Pulse Ox 05/21/21 23:52 70 17 168/77 97 05/21/21 18:58 75 20 147/79 98 05/21/21 18:41 147/79 05/21/21 18:40 73 20 95 05/21/21 16:22 98.2 F 76 18 162/77 100 Intake and Output 05/21/21 05/21/21 05/22/21 14:59 22:59 06:59 Other: Weight 94.801 kg Patient is an elderly male, very pleasant, in no acute distress. Patient is alert awake oriented to time place and person. Speech and language functions are normal. Attention, concentration and fund of knowledge is adequate. Patient can name and repeat very well. No aphasia or dysarthria. On cranial examination, pupils are round and reacting to light, visual nieto are full on confrontation, with no neglect on double simultaneous stimulation. Patient's extraocular muscles are intact with no nystagmus. Face is symmetric, tongue protrudes to the midline. Palatal elevation and sensation normal, hearing and shoulder shrug normal, facial sensation normal. Shoulder shrug normal. On muscle strength testing, there is no pronator drift and the strength is normal in arms and legs distally and proximally. Deep tendon reflexes are 1+ in the arms and legs and plantars are downgoing bilaterally. Sensory to touch is equal with no neglect. Cerebellar function showed no ataxia for [id number] testing. No dysdiadochokinesia. Tone and bulk of muscles normal. Gait normal. On general examination, there is no carotid bruit or murmur, S1-S2 audible. Abdomen is soft nontender, no organomegaly, bowel sounds present. Chest is clear. Peripheral pulses are present. patient has mild peripheral edema. Results - Laboratory Findings CBC and BMP: 05/21/21 16:25 05/21/21 16:25 Abnormal Lab Findings: Abnormal Labs 05/21/21 05/21/21 05/21/21 16:25 16:25 16:25 RBC 4.11 L PT 13.4 H INR 1.3 H APTT 40.8 H BUN 22 H Glucose 103 H Albumin 3.4 L Assessment and Plan Assessment: * Probable TIA manifesting with transient left arm and facial weakness, that lasted for 3 hours. Patient's current NIH stroke scale is 0. * Atrial fibrillation * History of dizziness * Hyperlipidemia * Diabetes * Hypertension * Coronary artery disease Plan: * Resume Pradaxa for stroke prevention related to adrenal fibrillation. * Patient's current TIA is likely from cerebrovascular atherosclerosis although there is no significant stenosis of the cerebrovascular system. Patient had 2 TIAs since he stopped taking Plavix on 03/22/2021. I would suggest starting aspirin 81 mg daily along with Pradaxa. * Also suggest resuming Crestor perhaps at a lower dose. He was on Crestor 20 mg when he was having problems with the legs. Even Crestor 10 mg may help. * We will check hemoglobin A1c. * ECHO has been ordered through ED, awaiting results. * Neurologically otherwise clear if above are normal.
[2021-05-22] MEDS ORDERED: ASPIRIN 81 MG PO SCH (11:00)
[2021-05-22] MEDS ORDERED: DABIGATRAN 150 MG CAP PO SCH (11:00)
[2021-05-22] MEDS: SODIUM CHLORIDE 0.9% 1,000 ML IV SCH (11:24)
[2021-05-22] MEDS ORDERED: METOPROLOL TARTRATE 25 MG TAB PO STA (13:30)
[2021-05-22 13:32] VITALS: BP 160/75; PULSE 71; RESP 16; TEMP 97.4
--- NOTE | 2021-05-22 20:10 | DS ---
DISCHARGE SUMMARY FINAL DIAGNOSES: 1. Weakness of the left side of the body, possible acute transient ischemic attack involving the right hemisphere. 2. History of coronary artery disease. 3. Hypertension. 4. Hyperlipidemia. 5. History of myocardial infarction. 6. History of diet-controlled diabetes mellitus. 7. History of coronary artery disease, coronary artery bypass grafting. DISCHARGE DISPOSITION: The patient will be discharged in stable condition with guarded prognosis. Discharge cleared by Neurology. Patient is keen on going home. HISTORY OF PRESENT ILLNESS: This 75-year-old gentleman with a past medical history of multiple medical problems was admitted with transient weakness of the left side of the body. TIA was suspected. Patient had neurovascular workup and 2D echo is pending at this time. Dr. Lomeli saw the patient and recommended outpatient followup. On exam, vitals are stable. CARDIOVASCULAR: S1, S2 muffled. ABDOMEN: Soft. NERVOUS SYSTEM: No focal deficit. DISCHARGE ADVICE AND MEDICATIONS: 1. Diet is cardiac. 2. Activity limited until followup.. 3. Follow up with Dr. Velarde in 2-3 days. 4. Follow up with Dr. Tavera in one week. 5. Antivert p.r.n. 6. Arava 20 mg p.o. daily. 7. Cozaar 25 mg p.o. daily. 8. Multivitamins 1 p.o. daily. 9. Nitrostat 0.4 mg sublingually p.r.n. 10.Pradaxa 450 mg p.o. b.i.d. 11.Spiriva 20 mg p.o. b.i.d. 12.Uroxatral 10 mg p.o. daily. 13.Wellbutrin 75 mg p.o. daily. 14.Aspirin 81 mg p.o. daily. 15.Coreg 25 mg p.o. b.i.d. Once again, the patient will be discharged in stable condition with guarded prognosis. MMODL / IJN: [id number] / MTDD
== END 2021-05-22 14:30 | disposition home or self-care (01) | DRG 69 ==
LOC: EC 16:20 → 3SCARD 17:51
PROVIDERS: ADMIT Hospitalist; ATTEND Hospitalist
DX: G45.9 Transient cerebral ischemic attack, unspecified (principal); Z82.3 Family history of stroke; E11.9 Type 2 diabetes mellitus without complications; E78.5 Hyperlipidemia, unspecified; I10 Essential (primary) hypertension; I25.10 Atherosclerotic heart disease of native coronary artery without angina pectoris; I25.2 Old myocardial infarction; I48.91 Unspecified atrial fibrillation; J84.10 Pulmonary fibrosis, unspecified; R29.700 NIHSS score 0; R29.810 Facial weakness; Z79.01 Long term (current) use of anticoagulants; Z79.02 Long term (current) use of antithrombotics/antiplatelets; Z79.82 Long term (current) use of aspirin; Z79.899 Other long term (current) drug therapy; Z85.828 Personal history of other malignant neoplasm of skin; Z87.891 Personal history of nicotine dependence; Z95.1 Presence of aortocoronary bypass graft; Z95.5 Presence of coronary angioplasty implant and graft; J32.3 Chronic sphenoidal sinusitis; Z20.822 Contact with and (suspected) exposure to COVID-19
CPT/HCPCS: 36415; 70450; 70496; 70498; 71046; 80053; 80061; 83036; 84484; 85025; 85610; 85730; 87635; 93005; 99285

== ENCOUNTER → 2021-06-07 | Outpatient (CLI) | payer MEDICARE ==
--- NOTE | 2021-06-08 09:31 | ECHOF ---
Referral Reason:TIA G45.9 MEASUREMENTS -------- HEIGHT: 182.9 cm WEIGHT: 95.3 kg BP: RVIDd: 2.7 cm (< 3.3) IVSd: 1.0 cm (0.6 - 1.1) LVIDd: 4.5 cm (3.9 - 5.3) LVPWd: 1.4 cm (0.6 - 1.1) IVSs: 1.8 cm LVIDs: 3.3 cm LVPWs: 1.6 cm LA Diam: 4.4 cm (2.7 - 3.8) LAESV Index (A-L): 38.98 ml/m Ao Diam: 3.0 cm (2.0 - 3.7) AV Cusp: 1.8 cm (1.5 - 2.6) LA Diam: 4.4 cm (2.7 - 3.8) MV EXCURSION: 17.007 mm (> 18.000) MV EF SLOPE: 57 mm/s (70 - 150) EPSS: 1.2 cm RAP: 5.00 mmHg RVSP: 23.43 mmHg FINDINGS -------- Atrial fibrillation. This was a technically good study. LV size, wall thickness and systolic function are normal, with an EF greater than 55%. The left dilan tricular size is normal. The right ventricle is normal in size. LA is moderately dilated 34-39 ml/m2 The right atrial size is normal. There is mild aortic valve sclerosis. There is no evidence of aortic regurgitation. Mild mitral regurgitation is present. Mild tricuspid regurgitation present. Right ventricular systolic pressure is normal at < 35 mmHg. There is no pulmonic regurgitation present. There is no pericardial effusion. CONCLUSIONS -------- 1. LV size, wall thickness and systolic function are normal, with an EF greater than 55%. 2. The left ventricular size is normal. 3. The right ventricle is normal in size. 4. LA is moderately dilated 34-39 ml/m2 5. There is mild aortic valve sclerosis. 6. Mild mitral regurgitation is present. 7. Mild tricuspid regurgitation present. 8. There is no pericardial effusion. OPERATIONS INTELLIGENCE: Rachel Meyer RDCS
== END | disposition home or self-care (01) ==
LOC: RADECHMAIN 14:44
PROVIDERS: ATTEND Family Medicine
DX: I08.3 Combined rheumatic disorders of mitral, aortic and tricuspid valves (principal); G45.9 Transient cerebral ischemic attack, unspecified; I48.91 Unspecified atrial fibrillation
CPT/HCPCS: 93306

== ENCOUNTER 2021-07-22 12:52 | Emergency (ER) | payer MEDICARE ==
[2021-07-22 12:58] VITALS: BP 146/85; PULSE 93; RESP 18; TEMP 98.2
--- NOTE | 2021-07-22 13:48 | ED ---
General Adult HPI - General Chief complaint: Urogenital Stated complaint: Blood in urine Time Seen by Provider: 07/22/21 13:01 Source: patient, RN notes reviewed, old records reviewed Mode of arrival: ambulatory Limitations: no limitations - History of Present Illness Initial comments: 76-year-old male presenting for evaluation of rectal bleeding. Patient had one episode of bright red blood per rectum earlier today. He was seen by his primary care physician and sent to the emergency department for further testing, evaluation of his blood counts. He had no pain. He states he had a colonoscopy many years ago and was told he had some polyps but no other findings. He is on anticoagulation with history of TIA and atrial fibrillation. He states that the episode was moderate not associated with any stool output. He's had no further episodes since this initial episode. No abdominal pain. No fever. - Related Data Home Medications Medication Instructions Recorded Confirmed Dabigatran [Pradaxa] 150 mg PO BID 11/19/14 05/22/21 Losartan [Cozaar] 25 mg PO DAILY 11/19/14 07/22/21 Alfuzosin HCl [Uroxatral] 10 mg PO DAILY 03/05/20 07/22/21 Multivitamins, Thera [Multivitamin 1 tab PO DAILY 03/05/20 07/22/21 (formulary)] Nitroglycerin Sl Tabs [Nitrostat] 0.4 mg SUBLINGUAL Q5M PRN 03/05/20 07/22/21 Trospium Chloride [Sanctura] 20 mg PO BID 03/05/20 07/22/21 Leflunomide [Arava] 20 mg PO DAILY 05/22/21 07/22/21 Meclizine [Antivert] 25 mg PO TID PRN 05/22/21 07/22/21 buPROPion [Wellbutrin] 75 mg PO DAILY 05/22/21 07/22/21 Carvedilol [Coreg] 25 mg PO BID-W/MEALS 07/22/21 07/22/21 Rosuvastatin Calcium [Crestor] 5 mg PO HS 07/22/21 predniSONE See Taper PO DIRECTED 07/22/21 07/22/21 Previous Rx's Medication Instructions Recorded Aspirin 81 mg PO DAILY #30 tab 05/22/21 Allergies Allergy/AdvReac Type Severity Reaction Status Date / Time diphenhydramine HCl Allergy Swelling Verified 07/22/21 14:15 [From Benadryl] Review of Systems ROS Statement: Those systems with pertinent positive or pertinent negative responses have been documented in the HPI. ROS Other: All systems not noted in ROS Statement are negative. Past Medical History Past Medical History: Coronary Artery Disease (CAD), Hyperlipidemia, Hypertension, Myocardial Infarction ([place]) Additional Past Medical History / Comment(s): recent stress test, recent SOB w/exertion, diet controlled diabetic, hx. skin cancer Last Myocardial Infarction Date:: 2003 History of Any Multi-Drug Resistant Organisms: None Reported Past Surgical History: Coronary Bypass/CABG Additional Past Surgical History / Comment(s): rhinoplasty Past Anesthesia/Blood Transfusion Reactions: Previous Problems w/ Anesthesia Additional Past Anesthesia/Blood Transfusion Reaction / Comment(s): difficult intubation-needs fiberoptic per pt. Past Psychological History: No Psychological Hx Reported Smoking Status: Former smoker Past Alcohol Use History: Rare Past Drug Use History: None Reported General Exam Limitations: no limitations General appearance: alert, in no apparent distress Head exam: Present: atraumatic, normocephalic Eye exam: Present: normal appearance, PERRL ENT exam: Present: normal exam Neck exam: Present: normal inspection. Absent: tenderness, meningismus Respiratory exam: Present: normal lung sounds bilaterally. Absent: respiratory distress, wheezes Cardiovascular Exam: Present: regular rate, normal rhythm GI/Abdominal exam: Present: soft. Absent: distended, tenderness, guarding Rectal exam: Absent: bloody stool, hemorrhoids (No large hemorrhoids present) Extremities exam: Present: normal inspection, normal capillary refill. Absent: pedal edema Neurological exam: Present: alert, oriented X3, CN II-XII intact. Absent: motor sensory deficit Psychiatric exam: Present: normal affect, normal mood Skin exam: Present: warm, dry, intact. Absent: cyanosis, diaphoretic Course Vital Signs 07/22/21 12:56 Temperature 98.2 F Pulse Rate 93 Respiratory 18 Rate Blood Pressure 146/85 O2 Sat by Pulse 98 Oximetry EKG Findings - EKG Comments: EKG Findings:: EKG: Sinus rhythm, rate of 72, MN interval 197, QRS duration 94, QTC [address] segment elevation. Medical Decision Making - Medical Decision Making 76-year-old male who presented with an episode of bright red rectal bleeding. Patient did have a picture of this It was a minimal amount of bright red blood in the toilet. He's had no further episodes. Hemoglobin is 12 7 which is stable compared to prior. We did discuss the options and at this time we will allow for outpatient surveillance. He will return with worsening bleeding. He will follow-up with his primary care physician and gastroenterology. He will require colonoscopy. If he should have significant rectal bleeding he will return to the emergency department for reevaluation and likely admission. - Lab Data Result diagrams: 07/22/21 13:39 07/22/21 13:39 Lab Results 07/22/21 07/22/21 07/22/21 Range/Units 13:39 13:39 13:39 WBC 7.5 (3.8-10.6) k/uL RBC 4.11 L (4.30-5.90) m/uL Hgb 12.7 L (13.0-17.5) gm/dL Hct 39.7 (39.0-53.0) % MCV 96.6 (80.0-100.0) fL MCH 31.0 (25.0-35.0) pg MCHC 32.1 (31.0-37.0) g/dL RDW 14.6 (11.5-15.5) % Plt Count 277 (150-450) k/uL MPV 7.4 Neutrophils % 89 % Lymphocytes % 6 % Monocytes % 4 % Eosinophils % 1 % Basophils % 0 % Neutrophils # 6.7 (1.3-7.7) k/uL Lymphocytes # 0.5 L (1.0-4.8) k/uL Monocytes # 0.3 (0-1.0) k/uL Eosinophils # 0.1 (0-0.7) k/uL Basophils # 0.0 (0-0.2) k/uL Hypochromasia Slight PT 12.2 H (9.0-12.0) sec INR 1.1 (<1.2) APTT 28.9 (22.0-30.0) sec Sodium 139 (137-145) mmol/L Potassium 4.7 (3.5-5.1) mmol/L Chloride 101 (98-107) mmol/L Carbon Dioxide 34 H (22-30) mmol/L Anion Gap 4 mmol/L BUN 16 (9-20) mg/dL Creatinine 0.62 L (0.66-1.25) mg/dL Est GFR (CKD-EPI)AfAm >90 (>60 ml/min/1.73 sqM) Est GFR (CKD-EPI)NonAf >90 (>60 ml/min/1.73 sqM) Glucose 173 H (74-99) mg/dL Calcium 9.7 (8.4-10.2) mg/dL Magnesium 2.2 (1.6-2.3) mg/dL Total Bilirubin 1.0 (0.2-1.3) mg/dL AST 23 (17-59) U/L ALT 22 (4-49) U/L Alkaline Phosphatase 80 (38-126) U/L Total Protein 7.0 (6.3-8.2) g/dL Albumin 3.4 L (3.5-5.0) g/dL Disposition Clinical Impression: Rectal bleeding Disposition: HOME SELF-CARE Condition: Fair Instructions (If sedation given, give patient instructions): Rectal Bleeding (ED) Additional Instructions: Please return to the emergency department with increased rectal bleeding. Please follow up with her primary care physician and gastroenterology. Is patient prescribed a controlled substance at d/c from ED?: No Referrals: Kobe Tenorio [Primary Care Provider] - 1-2 days Hilary Shell MD [STAFF PHYSICIAN] - 1-2 days Time of Disposition: 14:28
[2021-07-22 13:54] LABS: Basophils % (A) 0 %; Eosinophils # (A) 0.1 k/uL (0-0.7); Eosinophils % (A) 1 %; HCT 39.7 % (39.0-53.0); HGB 12.7 gm/dL (13.0-17.5); Hypochromasia Slight; Lymphocytes # (A) 0.5 k/uL (1.0-4.8); Lymphocytes % (A) 6 %; MCHC 32.1 g/dL (31.0-37.0); MCV 96.6 fL (80.0-100.0); Mean Platelet Volume 7.4; Monocytes # (A) 0.3 k/uL (0-1.0); Monocytes % (A) 4 %; Neutrophils # (A) 6.7 k/uL (1.3-7.7); Neutrophils % (A) 89 %; Platelet Count 277 k/uL (150-450); RBC 4.11 m/uL (4.30-5.90); RDW 14.6 % (11.5-15.5); WBC 7.5 k/uL (3.8-10.6)
[2021-07-22 14:06] LABS: INR 1.1 (<1.2); Partial Thromboplastin Time 28.9 sec (22.0-30.0); Prothrombin Time 12.2 sec (9.0-12.0)
[2021-07-22 14:14] LABS: ALT 22 U/L (4-49); AST 23 U/L (17-59); African American GFR (CKD) >90 (>60 ml/min/1.73 sqM); Albumin 3.4 g/dL (3.5-5.0); Alkaline Phosphatase 80 U/L (38-126); Anion Gap 4 mmol/L; Blood Urea Nitrogen 16 mg/dL (9-20); Calcium 9.7 mg/dL (8.4-10.2); Carbon Dioxide 34 mmol/L (22-30); Chloride 101 mmol/L (98-107); Glucose 173 mg/dL (74-99); Magnesium 2.2 mg/dL (1.6-2.3); Non-African American GFR(CKD) >90 (>60 ml/min/1.73 sqM); Potassium 4.7 mmol/L (3.5-5.1); Sodium 139 mmol/L (137-145)
== END 2021-07-22 15:04 | disposition home or self-care (01) ==
LOC: EC 12:52
DX: K62.5 Hemorrhage of anus and rectum (principal); E11.9 Type 2 diabetes mellitus without complications; I10 Essential (primary) hypertension; I25.2 Old myocardial infarction; I25.10 Atherosclerotic heart disease of native coronary artery without angina pectoris; E78.5 Hyperlipidemia, unspecified; Z87.891 Personal history of nicotine dependence; Z79.899 Other long term (current) drug therapy
CPT/HCPCS: 36415; 80053; 83735; 85025; 85610; 85730; 86850; 86900; 86901; 93005; 99283

== ENCOUNTER → 2021-08-13 | Outpatient (CLI) | payer MEDICARE ==
[2021-08-13 11:06] LABS: Glucose 2 Hour 304 mg/dL
== END | disposition home or self-care (01) ==
LOC: LABWHC1 07:23
PROVIDERS: ATTEND Psychiatry & Neurology Neurology
DX: G62.9 Polyneuropathy, unspecified (principal); R63.4 Abnormal weight loss; R53.1 Weakness
CPT/HCPCS: 36415; 82607; 82947; 82950; 84207

== ENCOUNTER 2021-08-18 15:32 | Emergency (ER) | payer MEDICARE ==
[2021-08-18] MEDS ORDERED: PANTOPRAZOLE 40 MG/10 ML VIAL IVP STA (15:57)
--- NOTE | 2021-08-18 16:07 | ED ---
General Adult HPI - General Chief complaint: GI Bleed Stated complaint: GI Bleed Time Seen by Provider: 08/18/21 15:51 Source: patient, family, RN notes reviewed Mode of arrival: wheelchair Limitations: no limitations - History of Present Illness Initial comments: Patient is a pleasant 76-year-old male presenting to the emergency department with concerns for rectal bleeding. Patient had an episode just prior to arrival. Patient states it was similar to episode he had a couple of weeks ago however there was more involved. Bright red blood. Patient does feel a little bit tired. No dyspnea. Patient does have similar episodes when her 2 times pr ior to this. Patient did make an appointment for GI follow-up however is unable to get an for another month. No abdominal pain. No fever. No hematemesis. No melena. - Related Data Home Medications Medication Instructions Recorded Confirmed Dabigatran [Pradaxa] 150 mg PO BID 11/19/14 08/18/21 Losartan [Cozaar] 25 mg PO DAILY 11/19/14 08/18/21 Alfuzosin HCl [Uroxatral] 10 mg PO DAILY 03/05/20 08/18/21 Multivitamins, Thera [Multivitamin 1 tab PO DAILY 03/05/20 08/18/21 (formulary)] Nitroglycerin Sl Tabs [Nitrostat] 0.4 mg SUBLINGUAL Q5M PRN 03/05/20 08/18/21 Trospium Chloride [Sanctura] 20 mg PO BID 03/05/20 08/18/21 Meclizine [Antivert] 25 mg PO TID PRN 05/22/21 08/18/21 Carvedilol [Coreg] 12.5 mg PO BID-W/MEALS 07/22/21 08/18/21 Rosuvastatin Calcium [Crestor] 5 mg PO HS 07/22/21 08/18/21 predniSONE See Taper PO DIRECTED 07/22/21 08/18/21 Infliximab-Dyyb [Inflectra] 1 dose IV DIRECTED 08/18/21 08/18/21 Previous Rx's Medication Instructions Recorded Hydrocortisone 1% Lotion 1 applic TOPICAL BID #118 ml 08/18/21 Allergies Allergy/AdvReac Type Severity Reaction Status Date / Time diphenhydramine HCl Allergy Swelling Verified 08/18/21 16:48 [From Benadryl] Review of Systems ROS Statement: Those systems with pertinent positive or pertinent negative responses have been documented in the HPI. ROS Other: All systems not noted in ROS Statement are negative. Constitutional: Denies: fever Eyes: Denies: eye pain ENT: Denies: ear pain Respiratory: Denies: cough Cardiovascular: Denies: chest pain Endocrine: Denies: fatigue Gastrointestinal: Reports: hematochezia. Denies: abdominal pain, hematemesis, melena Genitourinary: Denies: dysuria Musculoskeletal: Denies: back pain Skin: Denies: rash Neurological: Denies: weakness Past Medical History Past Medical History: Atrial Fibrillation, Coronary Artery Disease (CAD), Diabetes Mellitus, Hyperlipidemia, Hypertension, Myocardial Infarction ([place]) Additional Past Medical History / Comment(s): recent stress test, recent SOB w/exertion, diet controlled diabetic, hx. skin cancer Last Myocardial Infarction Date:: 2003 History of Any Multi-Drug Resistant Organisms: None Reported Past Surgical History: Coronary Bypass/CABG Additional Past Surgical History / Comment(s): rhinoplasty Past Anesthesia/Blood Transfusion Reactions: Previous Problems w/ Anesthesia Additional Past Anesthesia/Blood Transfusion Reaction / Comment(s): difficult intubation-needs fiberoptic per pt. Past Psychological History: No Psychological Hx Reported Smoking Status: Former smoker Past Alcohol Use History: Rare Past Drug Use History: None Reported General Exam Limitations: no limitations General appearance: alert, in no apparent distress Head exam: Present: normocephalic Eye exam: Present: normal appearance Neck exam: Present: normal inspection Respiratory exam: Present: normal lung sounds bilaterally Cardiovascular Exam: Present: regular rate, normal rhythm GI/Abdominal exam: Present: soft. Absent: tenderness Rectal exam: Present: hemorrhoids (3 o'clock position, moderate size), other (Mild amount of blood externally.) Extremities exam: Present: normal inspection Neurological exam: Present: alert Psychiatric exam: Present: normal affect, normal mood Skin exam: Present: normal color Course Vital Signs 08/18/21 08/18/21 08/18/21 15:41 16:12 16:58 Temperature 98.5 F 98.2 F Pulse Rate 70 75 73 Respiratory 18 18 16 Rate Blood Pressure 137/74 109/62 154/92 O2 Sat by Pulse 94 L 91 L 98 Oximetry EKG Findings - EKG Comments: EKG Findings:: Sinus rhythm 73. WA 158. QRS 90. QT 391. QTC 417. Normal axis. Normal QRS. Nonspecific ST-T. Medical Decision Making - Medical Decision Making Patient reevaluated and resting comfortably in bed. Case discussed with Dr. ni covering for Dr. Dawson who agrees patient can be discharged for follow-up. She recommends Dr. Villanueva. Patient and family updated and comfortable with this. They agree to return for worsening symptoms. Follow-up provider's will be provided - Lab Data Result diagrams: 08/18/21 16:05 08/18/21 16:05 Lab Results 08/18/21 08/18/21 08/18/21 Range/Units 16:04 16:05 16:05 WBC 6.0 (3.8-10.6) k/uL RBC 4.28 L (4.30-5.90) m/uL Hgb 13.2 (13.0-17.5) gm/dL Hct 41.2 (39.0-53.0) % MCV 96.3 (80.0-100.0) fL MCH 31.0 (25.0-35.0) pg MCHC 32.2 (31.0-37.0) g/dL RDW 15.2 (11.5-15.5) % Plt Count 174 (150-450) k/uL MPV 7.7 Neutrophils % 89 % Lymphocytes % 7 % Monocytes % 2 % Eosinophils % 0 % Basophils % 0 % Neutrophils # 5.3 (1.3-7.7) k/uL Lymphocytes # 0.4 L (1.0-4.8) k/uL Monocytes # 0.1 (0-1.0) k/uL Eosinophils # 0.0 (0-0.7) k/uL Basophils # 0.0 (0-0.2) k/uL PT (9.0-12.0) sec INR (<1.2) APTT (22.0-30.0) sec Sodium (137-145) mmol/L Potassium (3.5-5.1) mmol/L Chloride (98-107) mmol/L Carbon Dioxide (22-30) mmol/L Anion Gap mmol/L BUN (9-20) mg/dL Creatinine (0.66-1.25) mg/dL Est GFR (CKD-EPI)AfAm (>60 ml/min/1.73 sqM) Est GFR (CKD-EPI)NonAf (>60 ml/min/1.73 sqM) Glucose (74-99) mg/dL POC Glucose (mg/dL) 191 H (75-99) mg/dL POC Glu Care Clinician Yahaira Cox Calcium (8.4-10.2) mg/dL Total Bilirubin (0.2-1.3) mg/dL AST (17-59) U/L ALT (4-49) U/L Alkaline Phosphatase (38-126) U/L Total Protein (6.3-8.2) g/dL Albumin (3.5-5.0) g/dL Stool Occult Blood Positive (Negative) 08/18/21 08/18/21 Range/Units 16:05 16:05 WBC (3.8-10.6) k/uL RBC (4.30-5.90) m/uL Hgb (13.0-17.5) gm/dL Hct (39.0-53.0) % MCV (80.0-100.0) fL MCH (25.0-35.0) pg MCHC (31.0-37.0) g/dL RDW (11.5-15.5) % Plt Count (150-450) k/uL MPV Neutrophils % % Lymphocytes % % Monocytes % % Eosinophils % % Basophils % % Neutrophils # (1.3-7.7) k/uL Lymphocytes # (1.0-4.8) k/uL Monocytes # (0-1.0) k/uL Eosinophils # (0-0.7) k/uL Basophils # (0-0.2) k/uL PT 14.0 H (9.0-12.0) sec INR 1.3 H (<1.2) APTT 39.1 H (22.0-30.0) sec Sodium 135 L (137-145) mmol/L Potassium 4.1 (3.5-5.1) mmol/L Chloride 100 (98-107) mmol/L Carbon Dioxide 33 H (22-30) mmol/L Anion Gap 2 mmol/L BUN 17 (9-20) mg/dL Creatinine 0.62 L (0.66-1.25) mg/dL Est GFR (CKD-EPI)AfAm >90 (>60 ml/min/1.73 sqM) Est GFR (CKD-EPI)NonAf >90 (>60 ml/min/1.73 sqM) Glucose 198 H (74-99) mg/dL POC Glucose (mg/dL) (75-99) mg/dL POC Glu Care Clinician ID Calcium 9.4 (8.4-10.2) mg/dL Total Bilirubin 1.2 (0.2-1.3) mg/dL AST 22 (17-59) U/L ALT 24 (4-49) U/L Alkaline Phosphatase 66 (38-126) U/L Total Protein 6.4 (6.3-8.2) g/dL Albumin 3.2 L (3.5-5.0) g/dL Stool Occult Blood (Negative) Disposition Clinical Impression: Rectal bleeding, Hemorrhoids Disposition: HOME SELF-CARE Condition: Stable Instructions (If sedation given, give patient instructions): Gastrointestinal Bleeding (ED), Hemorrhoids (ED), High Fiber Diet (ED) Additional Instructions: Prescription sent to pharmacy. Please do follow-up with primary care physician in the next couple days for recheck. Please follow-up with surgeon, number provided. You will need colonoscopy. This could be done possibly with surgeon or with Dr. Vincent as planned. Continue stool softeners. High-fiber diet. Prescriptions: Hydrocortisone 1% Lotion 1 applic TOPICAL BID #118 ml Is patient prescribed a controlled substance at d/c from ED?: No Referrals: Kobe Tenorio [Primary Care Provider] - 1-2 days Elida Villanueva DO [Doctor of Osteopathic Medicine] - 1-2 days Hilary Shell MD [Family Provider] - 1-2 days Leandra Bravo MD [STAFF PHYSICIAN] - 1-2 days Time of Disposition: 17:11
[2021-08-18 16:08] LABS: Glucose,Whole Blood 191 mg/dL (75-99)
[2021-08-18 16:18] VITALS: TEMP 98.2
[2021-08-18 16:19] LABS: Basophils % (A) 0 %; Eosinophils % (A) 0 %; HCT 41.2 % (39.0-53.0); HGB 13.2 gm/dL (13.0-17.5); Lymphocytes # (A) 0.4 k/uL (1.0-4.8); Lymphocytes % (A) 7 %; MCHC 32.2 g/dL (31.0-37.0); MCV 96.3 fL (80.0-100.0); Mean Platelet Volume 7.7; Monocytes # (A) 0.1 k/uL (0-1.0); Monocytes % (A) 2 %; Neutrophils # (A) 5.3 k/uL (1.3-7.7); Neutrophils % (A) 89 %; Platelet Count 174 k/uL (150-450); RBC 4.28 m/uL (4.30-5.90); RDW 15.2 % (11.5-15.5)
[2021-08-18 16:24] LABS: INR 1.3 (<1.2); Partial Thromboplastin Time 39.1 sec (22.0-30.0)
[2021-08-18 16:25] LABS: Glucose 198 mg/dL (74-99)
[2021-08-18 16:50] LABS: ALT 24 U/L (4-49); AST 22 U/L (17-59); African American GFR (CKD) >90 (>60 ml/min/1.73 sqM); Albumin 3.2 g/dL (3.5-5.0); Alkaline Phosphatase 66 U/L (38-126); Anion Gap 2 mmol/L; Blood Urea Nitrogen 17 mg/dL (9-20); Calcium 9.4 mg/dL (8.4-10.2); Carbon Dioxide 33 mmol/L (22-30); Chloride 100 mmol/L (98-107); Non-African American GFR(CKD) >90 (>60 ml/min/1.73 sqM); Potassium 4.1 mmol/L (3.5-5.1); Sodium 135 mmol/L (137-145); Total Bilirubin 1.2 mg/dL (0.2-1.3); Total Protein 6.4 g/dL (6.3-8.2)
[2021-08-18 17:00] VITALS: BP 154/92; PULSE 73; RESP 16
== END 2021-08-18 17:50 | disposition home or self-care (01) ==
LOC: EC 15:32
DX: K64.4 Residual hemorrhoidal skin tags (principal); I48.91 Unspecified atrial fibrillation; I25.10 Atherosclerotic heart disease of native coronary artery without angina pectoris; E11.9 Type 2 diabetes mellitus without complications; E78.5 Hyperlipidemia, unspecified; I10 Essential (primary) hypertension; I25.2 Old myocardial infarction; Z88.1 Allergy status to other antibiotic agents; Z85.820 Personal history of malignant melanoma of skin; Z95.1 Presence of aortocoronary bypass graft; Z87.891 Personal history of nicotine dependence
CPT/HCPCS: 99283; 96374; 36415; 93005; 80053; 85025; 85610; 85730; 82272; C9113

== ENCOUNTER 2021-09-29 07:30 | Day surgery (SDC) | payer MEDICARE ==
[2021-09-27 16:27] VITALS: BMI 27.2
[~2021-09-29 07:30] MED LIST changes: -ALPRAZolam 0.25 MG TAB PO PRN; -ALPRAZolam 0.5 MG TAB PO PRN; -ASPIRIN 325 MG TAB PO STA; +LACTATED RINGERS 1,000 ML IV SCH; +LIDOCAINE 1% (10MG/ML) FOR IV START INTRADERMA PRN; -NITROGLYCERIN SL TABS 0.4 MG TAB SUBLINGUAL PRN; -SODIUM CHLORIDE 0.9% 1,000 ML in EMPTY BAG 1 BAG IV ONE
[2021-09-29 08:02] VITALS: TEMP 96.8
[2021-09-29 08:16] LABS: Glucose,Whole Blood 78 mg/dL (75-99)
[2021-09-29] MEDS ORDERED: LIDOCAINE 2% INJ 20 MG/ML (2 ML VIAL) ONE (08:48)
[2021-09-29] MEDS ORDERED: PROPOFOL 10 MG/ML 20 ML VIAL IV ONE (08:48)
--- NOTE | 2021-09-29 09:05 | P.PCN ---
Date of Procedure: 09/29/21 Procedure(s) Performed: BRIEF HISTORY: Patient is a 76-year-old pleasant white male scheduled for an elective colonoscopy as a part of evaluation of intermittent rectal bleeding for the last few weeks duration. Also has prior history of colon polyps and last colonoscopy was 5 years ago. PROCEDURE PERFORMED: Colonoscopy. PREOPERATIVE DIAGNOSIS: Intermittent rectal bleeding and history of colon polyps. IV sedation per Anesthesia. PROCEDURE: After informed consent was obtained, the patient, was brought into the endoscopy unit. IV sedation was administered by Anesthesia under continuous monitoring. Digital rectal examination was normal. Initially the Olympus CF-160 flexible video colonoscope was then inserted in the rectum, gradually advanced into the cecum without any difficulty. Careful examination was performed as the scope was gradually being withdrawn. Ileocecal valve and the appendiceal orifice were visualized and appeared normal. Prep was excellent. Mucosa of the cecum, ascending colon, transverse colon, descending colon, sigmoid colon, and rectum appeared normal. The left sided diverticulosis. Retroflexion was performed in the rectum and all internal were seen. The patient tolerated the procedure well. IMPRESSION: Normal-appearing colon from rectum to cecum with no evidence of colorectal neoplasia . Scattered left sided diverticulosis Small internal hemorrhoids RECOMMENDATIONS: Findings of this examination were discussed with the patient as well as his family. He was advised to be a high-fiber diet and take fiber supplements a regular basis. Have a repeat screening colonoscopy in 10 years based on his overall medical condition
[2021-09-29 09:21] LABS: Glucose,Whole Blood 81 mg/dL (75-99)
[2021-09-29] MEDS ORDERED: hydrALAZINE HCL 20 MG/ML 1 ML VIAL ONE (09:52)
[2021-09-29] MEDS ORDERED: hydrALAZINE HCL 20 MG/ML 1 ML VIAL IVP ONE ×2 (09:57→10:38)
[2021-09-29 10:51] VITALS: BP 155/73; PULSE 73; RESP 14
== END 2021-09-29 11:04 | disposition home or self-care (01) ==
LOC: ORWHC2ENDO 07:30
PROVIDERS: ATTEND Internal Medicine Gastroenterology
DX: K57.30 Diverticulosis of large intestine without perforation or abscess without bleeding (principal); K64.8 Other hemorrhoids; Z86.010 Personal history of colon polyps
CPT/HCPCS: 45378; J0360; J2704; J2001

== ENCOUNTER → 2021-12-01 | Outpatient (CLI) | payer MEDICARE ==
--- NOTE | 2021-12-01 21:31 | XR ---
EXAMINATION TYPE: XR chest 2V DATE OF EXAM: 12/01/2021 5:07 PM COMPARISON: Chest radiographs from 05/21/2021 TECHNIQUE: XR chest 2V Frontal and lateral views of the chest. CLINICAL INDICATION:Male, 76 years old with history of I509; FINDINGS: Lungs/Pleura: Diffuse increased interstitial lung markings throughout the lungs which are increased f rom prior in 2020. Airspace opacities over the heart are again visualized. Pulmonary vascularity: Unremarkable. Heart/mediastinum: Cardiomediastinal silhouette is unremarkable. Musculoskeletal: Degenerative changes of the shoulder joints. Midline sternotomy wires and surgical c lips project over the mediastinum. IMPRESSION: Interval progression of interstitial lung changes suggestive of underlying pulmonary fibrosis.
== END | disposition home or self-care (01) ==
LOC: RADXRMAIN 16:56
PROVIDERS: ATTEND Family Medicine
DX: R91.8 Other nonspecific abnormal finding of lung field (principal)
CPT/HCPCS: 71046

== ENCOUNTER → 2021-12-07 | Outpatient (CLI) | payer MEDICARE ==
--- NOTE | 2021-12-07 13:21 | CT ---
EXAMINATION TYPE: CT chest w con CT DLP: 392.9 mGycm, Automated exposure control for dose reduction was used. DATE OF EXAM: 12/07/2021 12:35 PM COMPARISON: CT chest 01/13/2021. 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 FINDINGS: LUNGS/ PLEURA: Minimal paraseptal emphysematous changes in the upper lungs. Increased subpleural reti culations and ground glass bilaterally from the upper lungs to the lung bases. Lung bases again have greater degree of septal thickening, reticulations, and traction bronchiectasis. Associated mild grou ndglass densities. No pleural effusion or pneumothorax. No dominant nodule/cavitary nodules are seen. No honeycombing. AIRWAY: Patent and unremarkable.. HEART: Stable cardiac size. No pericardial effusion. MEDIASTINUM: Mildly enlarged lower paratracheal lymph nodes measuring up to 1.1 cm (series 3, image 2 1), previously 0.9 cm. Surgical changes from CABG. VASCULATURE: No aortic aneurysm. MUSCULOSKELETAL: Median sternotomy wires are present. No acute osseous abnormalities. No suspicious o sseous lesions. Similar minimal anterior wedging/superior endplate deformity at T12. Mild bridging an terior endplate spondylosis of the lower thoracic spine. SOFT TISSUES/LYMPH NODES: Retained epicardial pacer leads. LOWER NECK: No significant findings. UPPER ABDOMEN: No significant findings. IMPRESSION: 1. Interstitial lung disease is redemonstrated with subpleural reticulations throughout. There has be en interval increase most prominently in the upper lobes bilaterally with subpleural reticulations pr ior examination on 01/13/2021. No honeycombing demonstrated. Correlate for rheumatoid associated inter stitial lung disease/NSIP. 2. Nonspecific marginal increase in size of paratracheal lymph node. Pulmonary nodules measuring less than 6 mm. Incidentally detected nodules of this size are generally considered benign in individuals without concomitant risk factors such as smoking history or other ri sk factors for malignancy. Follow up imaging is generally not performed, in accordance with Fleisch[place] r Society guidelines. In high-risk patients, a [address] thorax can be considered.
== END | disposition home or self-care (01) ==
LOC: RADCTMAIN 11:47
PROVIDERS: ATTEND Internal Medicine Critical Care Medicine
DX: M05.10 Rheumatoid lung disease with rheumatoid arthritis of unspecified site (principal); R91.8 Other nonspecific abnormal finding of lung field
CPT/HCPCS: 71260; Q9967

== ENCOUNTER → 2022-01-20 | Outpatient (CLI) | payer MEDICARE ==
[2022-01-20 11:23] LABS: ALT 8 U/L (10-49); AST 16 U/L (14-35); Chol/HDL Ratio 1.93 Ratio; LDL Cholesterol,Calculated 32.6 mg/dL (0.0-131.0); VLDL Calculation 15.12 mg/dL (5.00-40.00)
== END | disposition home or self-care (01) ==
LOC: LABWHC1 07:20
PROVIDERS: ATTEND Internal Medicine
DX: E78.2 Mixed hyperlipidemia (principal)
CPT/HCPCS: 36415; 80061; 84450; 84460

== ENCOUNTER → 2022-03-01 | Outpatient (CLI) | payer MEDICARE ==
--- NOTE | 2022-03-01 15:42 | XR ---
EXAMINATION TYPE: XR chest 2V DATE OF EXAM: 03/01/2022 COMPARISON: 12/01/2021 HISTORY: 76-year-old male Z18.10 retained metal fragments pre MRI TECHNIQUE: Frontal and lateral views FINDINGS: Median sternotomy wires are present with post-CABG clips in the mediastinum. Retained epicardial pace r lead is noted. Heart mildly enlarged. Diffuse medium interstitial density is similar prior exam. No new consolidation or pleural effusion. IMPRESSION: Previous post-CABG changes. However, note the presence of a retained epicardial pacer lead. 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
== END | disposition home or self-care (01) ==
LOC: RADXRMAIN 15:19
PROVIDERS: ATTEND Orthopaedic Surgery
DX: J84.9 Interstitial pulmonary disease, unspecified (principal); Z95.1 Presence of aortocoronary bypass graft
CPT/HCPCS: 71046

== ENCOUNTER → 2022-03-03 | Outpatient (CLI) | payer MEDICARE ==
--- NOTE | 2022-03-07 16:44 | US ---
EXAMINATION TYPE: US arterial LE single level DATE OF EXAM: 03/03/2022 2:19 PM CLINICAL HISTORY: I73.9 PERIPHERAL VASCULAR DISEASE. PAD per order. Previous smoker. Hx hypertension, TIA/CVA, [place], hx 1 cardiac stent placed. Hx heart attack in 2003. Doppler Waveforms: Right: Multiphasic Left: Multiphasic Pressure Gradients: No significant gradient Ankle-Brachial Indices: Right: 1.04 Left: 1.11 Toe Brachial Indices: Right: Unable to obtain due to faulty equipment. Left: Unable to obtain due to faulty equipment. IMPRESSION: Normal ankle-brachial indices
== END | disposition home or self-care (01) ==
LOC: RADUSWWP 13:05
PROVIDERS: ATTEND Internal Medicine
DX: I73.9 Peripheral vascular disease, unspecified (principal); I10 Essential (primary) hypertension; I25.2 Old myocardial infarction
CPT/HCPCS: 93922

== ENCOUNTER → 2022-03-09 | Outpatient (CLI) | payer MEDICARE ==
--- NOTE | 2022-03-09 10:03 | CT ---
EXAMINATION TYPE: CT hip RT wo con DATE OF EXAM: 03/09/2022 COMPARISON: Correlation CT abdomen 09/11/2020 HISTORY: 76-year-old male M25.551, right Hip pain. Possible hairline fracture. TECHNIQUE: Contiguous axial scanning of the right hip without IV contrast. Coronal and sagittal recon structions performed. 3-D reconstructions generated on a dedicated independent workstation. CT DLP: 339.90 mGycm Automated exposure control for dose reduction was used. FINDINGS: There is right inguinal and upper right femoral catheter and now lymphadenopathy versus varices spend ing up to 10.1 x 2.3 x 2.2 cm, reference axial image 58 and coronal image 14. Ultrasound may be usefu l to clarify these findings and determine the need for any tissue sampling. There is mild to moderate degenerative change at the right hip joint with marginal spurring and some axial joint space narrowing. No significant joint effusion. Enthesopathy at the greater trochanter at the gluteal insertion. Tiny os acetabuli or degenerative la bral ossification along the anterior superior rim of the acetabulum. Corticated, coronal image 21 and axial image 15. Suspect some additional enthesopathy along the superior margin of the right superior pubic ramus, cor onal image 25. This does not have the appearance of a fracture on corresponding sagittal image 50. It was also present on the 09/11/2020 CT. There is linear lucency also extending along the acetabular rim from superiorly to posteriorly, for e emily, axial image 13 and coronal images 34, 35, and 36. Suspected degenerative etiology, also prese nt on the 09/11/2020 exam. No acute fracture, subluxation, or dislocation seen. IMPRESSION: 1. EITHER CLUSTERED RIGHT INGUINAL AND UPPER RIGHT FEMORAL CANAL LYMPHADENOPATHY VERSUS VARICOSITIES. ULTRASOUND MAY BE HELPFUL IN CLARIFYING THESE FINDINGS AND DETERMINING THE NEED FOR ANY TISSUE SAMPL ING. 2. [id number] DEGENERATIVE CHANGE OF THE RIGHT HIP. NO ACUTE OSSEOUS ABNORMALITY SEEN. THE EXAM CAN BE REVIEWED WITH DIRECTED ATTENTION IF THERE IS PERSISTENT CLINICAL CONCERN.
== END | disposition home or self-care (01) ==
LOC: RADCTMAIN 08:10
PROVIDERS: ATTEND Orthopaedic Surgery
DX: M16.11 Unilateral primary osteoarthritis, right hip (principal)

== ENCOUNTER → 2022-03-16 | Outpatient (CLI) | payer MEDICARE ==
--- NOTE | 2022-03-16 13:40 | US ---
EXAMINATION TYPE: US groin RT DATE OF EXAM: 03/16/2022 COMPARISON: NONE CLINICAL HISTORY: R59.0 INGUINAL LYMPHADENOPATHY. Right groin swelling Right inguinal canal within normal limits. Right groin shows one lymph node measuring 1.4 x 0.46 x 1.2 cm. Right groin shows dilated varicosities of unknown origin near right greater saphenous vein. Varicose vein pre valsalva 0.48cm and post valsalva 0.60cm. All varicosities appear patent. No other abnormalities seen within right groin. IMPRESSION: 1. Right inguinal lymphadenopathy.
== END | disposition home or self-care (01) ==
LOC: RADUSWWP 12:30
PROVIDERS: ATTEND Internal Medicine
DX: R59.0 Localized enlarged lymph nodes (principal)